=== PATIENT | female | born 1935 | race Caucasian/White ===

== ENCOUNTER 2019-01-18 22:10 | Inpatient (IN) | payer OTHER ==
[~2019-01-18] VITALS: Ht 165.1 cm; Wt 60.9 kg
[2019-01-18] MEDS ORDERED: Prozac20 MG PO (22:42)
[2019-01-18] MEDS ORDERED: Hair, Skin & N1 EACH PO (22:42)
[2019-01-18] MEDS ORDERED: ASCO500 PO (22:42)
[2019-01-18] MEDS ORDERED: LEVSOD75 PO (22:42)
[2019-01-18] MEDS ORDERED: AMLO10 PO (22:42)
[2019-01-18 22:59] LABS: BASOPHILS ABSOLUTE AUTO 0.09 K/mm3 (0.00-0.23); BASOPHILS PERCENT AUTO 1 % (0-2); EOSINOPHILS ABSOLUTE AUTO 0.99 K/mm3 (0.00-0.68); EOSINOPHILS PERCENT AUTO 8 % (0-6); Hematocrit 33.7 % (33.0-51.0); Hemoglobin 10.8 g/dL (11.5-16.0); IMMATURE GRAN ABSOLUTE AUTO 0.05 K/mm3 (0.00-0.10); IMMATURE GRAN PERCENT AUTO 0 % (0-1); LYMPHOCYTES ABSOLUTE AUTO 0.86 K/mm3 (0.84-5.20); LYMPHOCYTES PERCENT AUTO 7 % (21-46); MONOCYTES ABSOLUTE AUTO 1.02 K/mm3 (0.16-1.47); MONOCYTES PERCENT AUTO 8 % (4-13); Mean Corpuscular HGB 29.3 pg (26.0-34.0); Mean Corpuscular Volume 91 fL (80-100); Mean Platelet Volume 9.3 fL (9.1-12.4); NEUTROPHILS ABSOLUTE AUTO 9.14 K/mm3 (1.96-9.15); NEUTROPHILS PERCENT AUTO 75 % (41-73); Platelet Count 435 K/mm3 (150-400); RDW Coefficient Variation 13.6 % (11.7-14.2); RDW Standard Deviation 45.8 fL (35.1-46.3); Red Blood Cell Count 3.69 M/mm3 (3.80-5.20); White Blood Cell Count 12.15 K/mm3 (4.00-11.30)
[2019-01-18 23:15] LABS: Alanine Aminotransfer (ALT/SGP 20 U/L (12-78); Albumin/Globulin Ratio 0.7 (0.8-1.8); Alk Phos 124 U/L (50-136); Anion Gap 8 mmol/L (6-16); Aspartate Aminotrans (AST/SGOT 32 U/L (12-37); Bilirubin, Total 0.3 mg/dL (0.1-1.0); Blood Urea Nitrogen 21 mg/dL (8-24); Bun/Creatinine Ratio 25.9 (12.0-20.0); CO2, Blood 24 mmol/L (21-32); Calcium, Blood 8.8 mg/dL (8.5-10.1); Chloride, Blood 105 mmol/L (98-108); Creatinine, Blood 0.81 mg/dL (0.40-1.00); Globulin, Blood 4.4 g/dL (2.2-4.0); Glomerular Filtration Rate >60 (60-); Glucose, Blood 108 mg/dL (70-99); Potassium, Blood 3.9 mmol/L (3.5-5.5); Sodium, Blood 137 mmol/L (136-145); Total Protein, Blood 7.4 g/dL (6.4-8.2)
--- NOTE | 2019-01-19 07:33 | NUR ---
SUMMARY: NO ACUTE CHANGE SINCE ADMISSION. PT VSS, CONTINUES ON 2L NC, SPO2 WNL. PT HAS BEEN UP SEVERAL TIMES TO COMMODE AND GETS SOB WITH EXERTION. HAD BM X2 TONIGHT. PT IS A/O, USING CALL LIGHT. NO ACUTE SAFETY CONCERNS AT THIS TIME. WILL REPORT TO DAY RN.
--- NOTE | 2019-01-19 07:36 | NUR ---
ADMISSION: REPORT RECIEVED FROM ED RN. PT TO UNIT AT ABOUT 0120. PT ABLE TO WALK FROM [facility] TO BED, VSS, ON 2L NC AT THIS TIME. ADMISSION CHARTING COMPLETED, PT BED ALARM ON FOR SAFETY. WILL CTM
[2019-01-19 10:08] LABS: BASOPHILS ABSOLUTE AUTO 0.08 K/mm3 (0.00-0.23); BASOPHILS PERCENT AUTO 1 % (0-2); EOSINOPHILS ABSOLUTE AUTO 0.89 K/mm3 (0.00-0.68); EOSINOPHILS PERCENT AUTO 7 % (0-6); Hematocrit 31.4 % (33.0-51.0); IMMATURE GRAN ABSOLUTE AUTO 0.06 K/mm3 (0.00-0.10); IMMATURE GRAN PERCENT AUTO 1 % (0-1); LYMPHOCYTES ABSOLUTE AUTO 0.79 K/mm3 (0.84-5.20); LYMPHOCYTES PERCENT AUTO 6 % (21-46); MONOCYTES PERCENT AUTO 9 % (4-13); Mean Corpuscular HGB 28.8 pg (26.0-34.0); Mean Corpuscular HGB Conc 31.8 g/dL (31.5-36.5); Mean Corpuscular Volume 91 fL (80-100); Mean Platelet Volume 9.6 fL (9.1-12.4); NEUTROPHILS ABSOLUTE AUTO 9.99 K/mm3 (1.96-9.15); NEUTROPHILS PERCENT AUTO 77 % (41-73); Platelet Count 392 K/mm3 (150-400); RDW Coefficient Variation 13.9 % (11.7-14.2); RDW Standard Deviation 45.7 fL (35.1-46.3); Red Blood Cell Count 3.47 M/mm3 (3.80-5.20); White Blood Cell Count 12.91 K/mm3 (4.00-11.30)
[2019-01-19 10:25] LABS: Anion Gap 6 mmol/L (6-16); Blood Urea Nitrogen 18 mg/dL (8-24); Bun/Creatinine Ratio 24.2 (12.0-20.0); CO2, Blood 24 mmol/L (21-32); Calcium, Blood 8.1 mg/dL (8.5-10.1); Chloride, Blood 104 mmol/L (98-108); Creatinine, Blood 0.74 mg/dL (0.40-1.00); Glomerular Filtration Rate >60 (60-); Glucose, Blood 132 mg/dL (70-99); Potassium, Blood 4.1 mmol/L (3.5-5.5); Sodium, Blood 134 mmol/L (136-145)
--- NOTE | 2019-01-19 11:51 | NUR ---
CRACKLES PT HAS CRACKLES T/O. INCREASED WOB. CALLED DR SAINZ, ORDERS OBTAINED.
--- NOTE | 2019-01-19 13:38 | NUR ---
PT REPORTS FEELING IMPROVED WOB APPEARS IMPROVED AFTER REC'D LASIX PER ORDERS.
[2019-01-19] MEDS ORDERED: MIRT15 PO (16:25)
--- NOTE | 2019-01-19 17:17 | NUR ---
SUMMARY PT DOING BETTER THIS EVENING. STILL BECOMES SOB W/EXERTION BUT WOB HAS IMPROVED AFTER IV LASIX. CRACKLES SUBSIDED, REMAIN IN LLL. PT USING BSC INDEPENDENTLY. USES CALL LIGHT APPROPRIATELY.
--- NOTE | 2019-01-20 06:40 | NUR ---
PT HAD NO ACUTE CHANGES T/O NIGHT. BP ELEVATED THIS AM, HYDRALAZINE GIVEN PER ORDERS. PT REMAINS SOB W/EXERTION, LUNGS DIM W/CRACKLES IN BASES. 3-4LO2 NC IN PLACE WHILE SLEEPING. PT REP LESS SOB AFTER RT TX. PT UP TO BSC INDEP, IS USING CALL LIGHT FOR ASSISTANCE, WILL CONT TO MONITOR UNTIL REP GIVEN TO ONCOMING RN.
--- NOTE | 2019-01-20 18:32 | NUR ---
NO ACUTE CHANGES. PT ON 3L NC. SOB WITH EXERTION. AMBULATED TO RESTROOM, OOB FOR DINNER. REPORTS FEELING BETTER COMPARED TO THIS AM. VSS, PLEASANT AND COOPERATIVE
--- NOTE | 2019-01-21 04:44 | NUR ---
PT HAD NO ACUTE CHANGES T/O NIGHT; VSS. 3LO2 NC IN PLACE TO REGIS PSATS >90%. PT REMAINS QUITE SOB W/EXERTION, DECLINED NEED FOR RT TX. PT UP INDEP TO BSC, REMAINS WEAK, BUT REP FEELING SOMEWHAT IMPROVED. TYLENOL GIVEN FOR DISCOMFORT. PT USING CALL LIGHT FOR ASSISTANCE, WILL CONT TO MONITOR UNTIL REP GIVEN TO ONCOMING RN.
[2019-01-21 05:12] LABS: BASOPHILS ABSOLUTE AUTO 0.07 K/mm3 (0.00-0.23); BASOPHILS PERCENT AUTO 1 % (0-2); EOSINOPHILS ABSOLUTE AUTO 1.17 K/mm3 (0.00-0.68); EOSINOPHILS PERCENT AUTO 12 % (0-6); Hematocrit 32.4 % (33.0-51.0); Hemoglobin 10.4 g/dL (11.5-16.0); IMMATURE GRAN ABSOLUTE AUTO 0.06 K/mm3 (0.00-0.10); IMMATURE GRAN PERCENT AUTO 1 % (0-1); LYMPHOCYTES ABSOLUTE AUTO 0.78 K/mm3 (0.84-5.20); LYMPHOCYTES PERCENT AUTO 8 % (21-46); MONOCYTES ABSOLUTE AUTO 1.07 K/mm3 (0.16-1.47); MONOCYTES PERCENT AUTO 11 % (4-13); Mean Corpuscular HGB 29.4 pg (26.0-34.0); Mean Corpuscular HGB Conc 32.1 g/dL (31.5-36.5); Mean Corpuscular Volume 92 fL (80-100); Mean Platelet Volume 9.6 fL (9.1-12.4); NEUTROPHILS ABSOLUTE AUTO 6.63 K/mm3 (1.96-9.15); NEUTROPHILS PERCENT AUTO 68 % (41-73); Platelet Count 441 K/mm3 (150-400); RDW Coefficient Variation 13.9 % (11.7-14.2); RDW Standard Deviation 47.2 fL (35.1-46.3); Red Blood Cell Count 3.54 M/mm3 (3.80-5.20); White Blood Cell Count 9.78 K/mm3 (4.00-11.30)
--- NOTE | 2019-01-21 18:46 | NUR ---
SUMMARY NO ACUTE CHANGES NOTED THROUGH THE SHIFT. O2 >90% ON 3 L NC, PRN BREATHING TX X1. TYLENOL FOR BODY ACHES X1. PT INDEPENDENT TO BSC. CALLS FOR ASSISTANCE PRN. CHEST XRAY COMPLETED. CALL LIGHT IN REACH
--- NOTE | 2019-01-22 06:04 | NUR ---
PT UP TO COMMODE X2 AND HAD INCREASED SOB. RT CALLED, PT GIVEN BREATHING TX AND 02 INCREASED TO 6L ON HIGH FLOW, SEE RT KAY Meyer. NOTES. PT ALSO STATED SOMEWHAT ANXIOUS, NOTHING FOR ANXIETY ON EMAR AT THIS TIME, WILL CTM PT STATUS AND REASSESS AFTER BREATHING IS CONTROLED.
--- NOTE | 2019-01-22 06:10 | NUR ---
SUMMARY: SEE PREVIOUS NOTE BY THIS RN. NO OTHER ACUTE RESPIRATORY EVENTS TONIGHT. PT CONTINUES ON 6L HIGH FLOW, SPO2 >90%. PT ABLE TO REST EASY AND NOT BE ANXIOUS AFTER 02 INCREASED. VSS, PT IS A/O, INDEPENDENT IN ROOM. RT RECOMMENDS HOME 02 EVAL BEFORE DISCHARGE. NO SAFETY CONCERNS AT THIS TIME. WILL REPORT TO DAY RN.
--- NOTE | 2019-01-22 07:48 | NUR ---
ASSESSMENT: PT SLEEPING. VSS. NO S/S DISTRESS. PT ON 6L O2. CALL LIGHT IN REACH. WILL ALLOW REST AND FULLY ASSESS WHEN PT IS AWAKE.
--- NOTE | 2019-01-22 17:13 | NUR ---
PT STATES SHE IS "FEELING BETTER" THIS SHIFT. PT CURRENTLY ON 4L O2 WITH HUMIDIFIER. SOB WITH EXERTION. NO COUGH. PT STARTED ON SCHEDULED INHALERS AND STEROIDS THIS AM. ABBY DIET WELL. VOIDING ON BSC INDEP. PT DOES NOT TOLERATE AMBULATION. PT HAD SMALL FORMED BM'S THIS SHIFT. STARTED ON PROBIOTICS. IV S.L. AM LABS TO BE REPEATED. AFEBRILE. AT BEDSIDE T/O SHIFT, ATTENTIVE. USES CALL LIGHT APPROPRIATELY.
[2019-01-23 04:29] LABS: Hematocrit 32.4 % (33.0-51.0); Hemoglobin 10.2 g/dL (11.5-16.0); Mean Corpuscular HGB Conc 31.5 g/dL (31.5-36.5); Mean Corpuscular Volume 92 fL (80-100); Mean Platelet Volume 9.6 fL (9.1-12.4); Platelet Count 433 K/mm3 (150-400); RDW Coefficient Variation 14.1 % (11.7-14.2); RDW Standard Deviation 47.6 fL (35.1-46.3); Red Blood Cell Count 3.52 M/mm3 (3.80-5.20); White Blood Cell Count 7.22 K/mm3 (4.00-11.30)
[2019-01-23 04:47] LABS: Anion Gap 8 mmol/L (6-16); Blood Urea Nitrogen 25 mg/dL (8-24); Bun/Creatinine Ratio 34.7 (12.0-20.0); CO2, Blood 25 mmol/L (21-32); Calcium, Blood 9.2 mg/dL (8.5-10.1); Chloride, Blood 108 mmol/L (98-108); Creatinine, Blood 0.72 mg/dL (0.40-1.00); Glomerular Filtration Rate >60 (60-); Glucose, Blood 117 mg/dL (70-99); Potassium, Blood 4.4 mmol/L (3.5-5.5); Sodium, Blood 141 mmol/L (136-145)
--- NOTE | 2019-01-23 07:14 | NUR ---
SUMMARY: NO CHANGE TONIGHT. PT SLEPT WELL, VSS, CONTINUES ON 4L NC. PT A/O, INDEPENDENT IN ROOM.
--- NOTE | 2019-01-23 18:33 | NUR ---
SHIFT SUMMARY PT ON 4L OF OXYGEN VIA NASAL CANULA, SATS ABOVE 92% DURING SHIFT. SOME SOB WITH EXERTION TO BSC. PT COMPLAINED OF NO PAIN. URINITED AND HAD BM DURING SHIFT. ALERT AND ORIENTED. PT RESTING IN BED DURING SHIFT. FAMILY IN AND OUT OF ROOM.
--- NOTE | 2019-01-24 05:00 | NUR ---
SUMMARY: NO CHANGE TONIGHT. PT A/O, VSS. O2 AT 4L, PT REPORTS STRONGER AND UP INDEPENDENTLY IN ROOM. PLAN IS HOME 02 EVAL TODAY.
[2019-01-24] MEDS ORDERED: DULERA 200 MCG/13 GM INH (11:39)
[2019-01-24] MEDS ORDERED: DELTASONE20 MG PO (11:41)
[2019-01-24] MEDS ORDERED: Florastor250 MG PO (11:41)
[2019-01-24] MEDS ORDERED: ALBU90OI6 INH (11:42)
[2019-01-24] MEDS ORDERED: DOXY100 PO (11:43)
--- NOTE | 2019-01-24 16:56 | NUR ---
DISCHARGE PT EDUCATED ON DISCHARGE INSTRUCTIONS AND HOME OXYGEN. IV DC'D WITH CATHETER TIP INTACT. WHEELCHAIR ESCORT TO CAR WITH NO ACUTE CHANGES.
== END 2019-01-24 16:20 | disposition home or self-care (01) | DRG 871 ==
LOC: ER 22:10 → SURS 01-19 01:03
PROVIDERS: Emergency Medicine; Internal Medicine; ADMIT Family Medicine
DX: A40.3 Sepsis due to Streptococcus pneumoniae (principal); J96.01 Acute respiratory failure with hypoxia; J13 Pneumonia due to Streptococcus pneumoniae; J44.0 Chronic obstructive pulmonary disease with (acute) lower respiratory infection; C34.11 Malignant neoplasm of upper lobe, right bronchus or lung; E03.9 Hypothyroidism, unspecified; F32.9 Major depressive disorder, single episode, unspecified; I10 Essential (primary) hypertension; I35.0 Nonrheumatic aortic (valve) stenosis; Z99.81 Dependence on supplemental oxygen; Z87.891 Personal history of nicotine dependence; D64.9 Anemia, unspecified; D47.3 Essential (hemorrhagic) thrombocythemia
CPT/HCPCS: 36415; 71045; 71046; 71260; 80048; 80053; 83880; 84145; 84484; 85025; 85027; 93005; 93010; 94640; 94760; 94761; 96365; 99285-25; J0360; J0456; J0696; J1650; J1940; J7050; J7512; Q9967

== ENCOUNTER 2019-02-24 08:25 | Inpatient (IN) | payer OTHER ==
[~2019-02-24] VITALS: Ht 167.6 cm; Wt 64.5 kg
[~2019-02-24 08:25] MED LIST: AMLO10 PO; DELTASONE20 MG PO; DOXY100 PO; DULERA 200 MCG/13 GM INH; Florastor250 MG PO; LEVSOD75 PO; Prozac40 MG PO
[2019-02-24 09:00] LABS: Hematocrit 30.9 % (33.0-51.0); Mean Corpuscular HGB 30.8 pg (26.0-34.0); Mean Corpuscular HGB Conc 32.4 g/dL (31.5-36.5); Mean Corpuscular Volume 95 fL (80-100); Mean Platelet Volume 9.7 fL (9.1-12.4); NRBC ABSOLUTE 0.24 K/mm3 (0.00-0.02); NRBC Auto 0.7 /100 WBC (0.0-0.2); Platelet Count 492 K/mm3 (150-400); RDW Coefficient Variation 19.9 % (11.7-14.2); RDW Standard Deviation 63.7 fL (35.1-46.3); Red Blood Cell Count 3.25 M/mm3 (3.80-5.20); White Blood Cell Count 33.81 K/mm3 (4.00-11.30)
[2019-02-24 09:23] LABS: Alanine Aminotransfer (ALT/SGP 30 U/L (12-78); Albumin, Blood 3.5 g/dL (3.4-5.0); Albumin/Globulin Ratio 1.1 (0.8-1.8); Alk Phos 89 U/L (50-136); Anion Gap 5 mmol/L (6-16); Aspartate Aminotrans (AST/SGOT 37 U/L (12-37); Bilirubin, Total 0.3 mg/dL (0.1-1.0); Blood Urea Nitrogen 36 mg/dL (8-24); Bun/Creatinine Ratio 48.3 (12.0-20.0); CO2, Blood 29 mmol/L (21-32); Calcium, Blood 8.6 mg/dL (8.5-10.1); Chloride, Blood 102 mmol/L (98-108); Creatinine, Blood 0.75 mg/dL (0.40-1.00); Globulin, Blood 3.3 g/dL (2.2-4.0); Glomerular Filtration Rate >60 (60-); Glucose, Blood 91 mg/dL (70-99); Potassium, Blood 4.4 mmol/L (3.5-5.5); Sodium, Blood 136 mmol/L (136-145); Total Protein, Blood 6.8 g/dL (6.4-8.2); Troponin I 0.377 ng/mL (0.000-0.040)
[2019-02-24 09:27] LABS: BASOPHILS PERCENT MAN 0 % (0-2); EOSINOPHILS PERCENT MAN 0 % (0-6); LYMPHOCYTES % ATYPICAL MANUAL 1 % (0-0); LYMPHOCYTES ABSOLUTE MAN 3.71 K/mm3 (0.84-5.20); LYMPHOCYTES PERCENT MAN 10 % (21-46); METAMYELOCYTE PERCENT MAN 0 % (0-0); MONOCYTES ABSOLUTE MAN 2.02 K/mm3 (0.16-1.47); MONOCYTES PERCENT MAN 6 % (4-13); MYELOCYTE ABSOLUTE MAN 0.67 K/mm3 (0.00-0.00); MYELOCYTE PERCENT MAN 2 % (0-0); NEUTROPHILS ABSOLUTE MAN 27.04 K/mm3 (1.96-9.15); SEG NEUTROPHILS PERCENT MAN 80 % (41-73); TOTAL CELLS COUNTED 250
[2019-02-24 09:40] LABS: International Normalized Ratio 0.97; Prothrombin Time Results 10.3 Sec (9.7-11.5)
[2019-02-24 10:34] LABS: Source, Urine Clean Catch
[2019-02-24 10:47] LABS: Bilirubin, Urine Neg (Neg); Blood, Urine Neg (Neg); Glucose Qualitative, Urine Neg (Neg); Ketones, Urine Neg (Neg); Leukocyte Esterase, Urine 1+ (Neg); Nitrite, Urine Neg (Neg); Protein, Urine 1+ (Neg); Urobilinogen, Urine NORM (Normal)
[2019-02-24 10:59] LABS: Appearance, Urine Clear (Clear); Color, Urine Yellow (P-Yellow)
[2019-02-24 11:00] LABS: Bacteria Few /hpf; Red Blood Cells, Urine 0-2 /hpf (0-2); Squamous Epithelial Cells Mod /hpf (Few)
--- NOTE | 2019-02-24 12:31 | NUR ---
Echocardiogram completed.
[2019-02-24] MEDS ORDERED: CLOP75 PO (12:51)
[2019-02-24] MEDS ORDERED: LO-DOSE ASPIRIN81 MG PO (13:10)
[2019-02-24] MEDS ORDERED: MIRT15 PO (13:10)
[2019-02-24] MEDS ORDERED: Hair, Skin & N1 EACH PO (13:13)
[2019-02-24] MEDS ORDERED: ASCO500 PO (13:13)
[2019-02-24] MEDS ORDERED: Fish Oil 10001000 MG PO (13:14)
[2019-02-24] MEDS ORDERED: Vitamin D2000 UNIT PO (13:14)
[2019-02-24] MEDS ORDERED: ALBU90OI6 INH (13:19)
--- NOTE | 2019-02-24 17:35 | NUR ---
NURSING PCU DAYSHIFT SUMMARY: Assumed care of pt at approx 1450. Arrived from ER via re[facility] torres to unit bed w/SBA. A/O, pleasant, cooperative w/care. Noted general weakness w/intermittent diaphoresis t/o the afternoon. Denies any pain/discomfort. Skin is intact w/no breakdown noted. Tele in place, afib w/HR 100-110, no c/o CP/pressure, BP stable, no noted edema. L/S cta t/o, O2 sat stable on RA, dyspnea w/exertion, no noted cough. Abd SNT, BT+, voiding w/o difficulty per pt. PIV x2, diltiazem gtt infusing at 10cc/hr, LR infusing at 150cc/hr x 1.5L as per d/o. Spouse at bedside, plan of care discussed, pt and spouse deny any questions/needs at this time. Call light in reach, cont to monitor until rpt is given to NOC RN.
[2019-02-24] MEDS ORDERED: ZINC30 M1 PO (19:17)
[2019-02-24] MEDS ORDERED: (None)20 M1 PO (19:38)
--- NOTE | 2019-02-24 21:00 | NUR ---
PCU NOC SHIFT SUMMARY PATIENT ALERT AND ORIENTED X4. REPORTS CHRONIC HIP PAIN WHICH IS WNL FOR HER. PATIENT SBA TO BEDSIDE COMMODE - TOLERATES WELL. HAD A REGULAR/NORMAL BM MOVEMENT THIS SHIFT. PATIENT REMAINS IN AFIB W/ RVR FROM 95/105 RATE - CARDIEZEM RUNNING AT 10 GTT HR - WILL TITRATE DOWN TO 5 ONCE SHE REMAINS UNDER 100 RATE X 1 HOUR. PATIENT REMAINS ON ROOM AIR WITH CLEAR LUNG SOUNDS. SKIN IS PALE/DUSKY. PATIENT REPORT SOB WITH EXCERTION. WILL CONTINUE TO MONITOR. CALL LIGHT W/I REACH/PATIENT USES APPROPRIATLY.
[2019-02-25 04:09] LABS: Hematocrit 27.2 % (33.0-51.0); Hemoglobin 8.5 g/dL (11.5-16.0); Mean Corpuscular HGB 30.1 pg (26.0-34.0); Mean Corpuscular HGB Conc 31.3 g/dL (31.5-36.5); Mean Corpuscular Volume 97 fL (80-100); Mean Platelet Volume 9.5 fL (9.1-12.4); NRBC ABSOLUTE 0.08 K/mm3 (0.00-0.02); NRBC Auto 0.3 /100 WBC (0.0-0.2); Platelet Count 347 K/mm3 (150-400); RDW Coefficient Variation 20.1 % (11.7-14.2); RDW Standard Deviation 67.5 fL (35.1-46.3); Red Blood Cell Count 2.82 M/mm3 (3.80-5.20); White Blood Cell Count 24.18 K/mm3 (4.00-11.30)
[2019-02-25 04:29] LABS: BAND PERCENT MAN 1 % (0-8); BASOPHILS PERCENT MAN 0 % (0-2); EOSINOPHILS ABSOLUTE MAN 0.24 K/mm3 (0.00-0.68); EOSINOPHILS PERCENT MAN 1 % (0-6); LYMPHOCYTES ABSOLUTE MAN 2.65 K/mm3 (0.84-5.20); LYMPHOCYTES PERCENT MAN 11 % (21-46); MONOCYTES PERCENT MAN 5 % (4-13); MYELOCYTE ABSOLUTE MAN 0.72 K/mm3 (0.00-0.00); MYELOCYTE PERCENT MAN 3 % (0-0); NEUTROPHILS ABSOLUTE MAN 19.34 K/mm3 (1.96-9.15); SEG NEUTROPHILS PERCENT MAN 79 % (41-73); TOTAL CELLS COUNTED 100
[2019-02-25 04:35] LABS: Anion Gap 8 mmol/L (6-16); Blood Urea Nitrogen 41 mg/dL (8-24); Bun/Creatinine Ratio 56.6 (12.0-20.0); CO2, Blood 25 mmol/L (21-32); Calcium, Blood 7.7 mg/dL (8.5-10.1); Chloride, Blood 104 mmol/L (98-108); Creatinine, Blood 0.73 mg/dL (0.40-1.00); Glomerular Filtration Rate >60 (60-); Glucose, Blood 82 mg/dL (70-99); Potassium, Blood 4.1 mmol/L (3.5-5.5); Sodium, Blood 137 mmol/L (136-145)
[2019-02-25 04:44] LABS: Thyroid Stimulating Hormone 0.345 uIU/mL (0.360-4.800)
--- NOTE | 2019-02-25 06:24 | NUR ---
PCU NOC SHIFT SUMMARY PATIENT ALERT AND ORIENTED T/O SHIFT X4. PATIENT AFIB WITH RVR ADMIT, HEART RATE REMAINS AFIB 90-110'S - MD MENENDEZ IN TO SEE PATIENT X2 THIS SHIFT. PATIENT USES BEDSIDE COMMODE WELL WITH STEADY GAIT. PATIENT DENIES ANY PAIN T/O SHIFT. BILATERAL GROIN BUISING NOTED THAT IS STABLE AND HEALING. AM EKG COMPLETED. L/S CLEAR AND PATIENT REMAINS ON ROOM AIR. WILL CONTINUE TO MONITOR AND GIVE REPORT TO DAYSHIFT RN.
--- NOTE | 2019-02-25 09:20 | NUR ---
Pt states she feels short of breath; She was given her medications this morning. Heart rate is 110 currently; Dr. Crane was informed of her increasing rate this morning. Thept appears calm, and she is lying in bed, HOB elevated about 10 degrees, able to carry on normal conversation with her who is at the bedside.
--- NOTE | 2019-02-25 10:22 | NUR ---
Patient is lying in bed and alert with , Giorgio, bedside. Patient openly shares about her life, her family and her current medical issues. Patient admitted that she is discouraged by her recent medical problems because she feels that she just gets through one thing and then she is hit with another. I listen empathically, facilitated a life review highlighting all that she has overcome, provide grief support (recent loss of oldest son to cancer), quote inspiring scriptures and provide prayer (in line with patient's Christian beliefs). Patient responded well and showed signs of an elevated mood.
--- NOTE | 2019-02-25 12:28 | NUR ---
The pt states that her shortness of breath earlier has since resolved. 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
--- NOTE | 2019-02-25 22:32 | NUR ---
PCU NOC SHIFT - ASSUMED CARE PATIENT ALERT AND ORIENTED X4. RESP E/U ON ROOM AIR. PATIENT DENIES ANY CHEST PAIN OR DISCOMFORT AT THIS TIME; NO SOB OF NOTED, LUNG SOUNDS CLEAR AND PATIENT REMAINS ON ROOM AIR. PATIENT PER ASSOCIATE STORE MANAGER IN AFIB W/ BUNDLE BRANCH BLOCK AND PVC'S WITH HIS RATE IN THE 90'S. PATIENT INDEPENDANT UP TO BEDSIDE COMMODE. IV'S SALINE LOCKED. PATIENT DENIES ANY NEEDS AT THIS TIME. WILL CONTINUE TO MONITOR. CALL LIGHT W/I REACH.
--- NOTE | 2019-02-26 05:14 | NUR ---
PCU NOC SHIFT SUMMARY PATIENT REMAINED ALERT AND ORIENTED T/O SHIFT X4. PATIENT HEART RATE CONTINUED TO BE CONTROLLED WITH HER RATE 70-80'S CURRENTLY PER SHEET METAL DUCT WORKER SUPERVISOR REMAINING IN AFIB. PATIENT PLEASANT AND COOPERATIVE WITH CARE T/O SHIFT. NO ACUTE EVENTS NOTED. WILL CONTINUE TO MONITOR AND GIVE REPORT TO DAYSHIFT RN.
[2019-02-26 13:42] LABS: Hematocrit 24.7 % (33.0-51.0); Hemoglobin 7.9 g/dL (11.5-16.0); Mean Corpuscular HGB 30.5 pg (26.0-34.0); Mean Corpuscular Volume 95 fL (80-100); Mean Platelet Volume 9.4 fL (9.1-12.4); NRBC ABSOLUTE 0.03 K/mm3 (0.00-0.02); NRBC Auto 0.1 /100 WBC (0.0-0.2); Platelet Count 278 K/mm3 (150-400); RDW Coefficient Variation 21.1 % (11.7-14.2); RDW Standard Deviation 70.4 fL (35.1-46.3); Red Blood Cell Count 2.59 M/mm3 (3.80-5.20); White Blood Cell Count 24.86 K/mm3 (4.00-11.30)
[2019-02-26 13:53] LABS: Anion Gap 12 mmol/L (6-16); Blood Urea Nitrogen 32 mg/dL (8-24); CO2, Blood 21 mmol/L (21-32); Calcium, Blood 8.1 mg/dL (8.5-10.1); Chloride, Blood 104 mmol/L (98-108); Glomerular Filtration Rate >60 (60-); Glucose, Blood 177 mg/dL (70-99); Potassium, Blood 4.4 mmol/L (3.5-5.5); Sodium, Blood 137 mmol/L (136-145); Vancomycin, Trough 6.2 ug/mL (5.0-10.0)
[2019-02-26 14:26] LABS: BAND PERCENT MAN 1 % (0-8); BASOPHILS PERCENT MAN 0 % (0-2); EOSINOPHILS PERCENT MAN 0 % (0-6); LYMPHOCYTES ABSOLUTE MAN 0.99 K/mm3 (0.84-5.20); LYMPHOCYTES PERCENT MAN 4 % (21-46); METAMYELOCYTE ABSOLUTE MAN 0.24 K/mm3 (0.00-0.00); METAMYELOCYTE PERCENT MAN 1 % (0-0); MONOCYTES ABSOLUTE MAN 0.49 K/mm3 (0.16-1.47); MONOCYTES PERCENT MAN 2 % (4-13); NEUTROPHILS ABSOLUTE MAN 23.11 K/mm3 (1.96-9.15); SEG NEUTROPHILS PERCENT MAN 92 % (41-73); TOTAL CELLS COUNTED 100
--- NOTE | 2019-02-26 16:21 | NUR ---
Telephone report was given to KYLAH De La Cruz, at this time. Anticipate transfer of pt to room 224.
--- NOTE | 2019-02-26 17:08 | NUR ---
TRANSFER FROM PCU ARRIVED TO ROOM VIA W/C, A&O X3, TRANSFERRED INDEPENDENTLY TO BED, DENIES ANY SOB, COUGH, PAIN OR ANY DISCOMFORT, LUNGS SOUNDS CLEAR T/O, HR IRREG, ACTIVE BT'S X4, ORIENTED TO ROOM LAYOUT AND CALL SYSTEM, CONT. TO MONITOR FOR ANY CHANGES.
[2019-02-27 04:12] LABS: BASOPHILS ABSOLUTE AUTO 0.03 K/mm3 (0.00-0.23); BASOPHILS PERCENT AUTO 0 % (0-2); EOSINOPHILS ABSOLUTE AUTO 0.02 K/mm3 (0.00-0.68); EOSINOPHILS PERCENT AUTO 0 % (0-6); Hematocrit 24.6 % (33.0-51.0); Hemoglobin 7.8 g/dL (11.5-16.0); IMMATURE GRAN ABSOLUTE AUTO 0.91 K/mm3 (0.00-0.10); IMMATURE GRAN PERCENT AUTO 4 % (0-1); LYMPHOCYTES ABSOLUTE AUTO 0.69 K/mm3 (0.84-5.20); LYMPHOCYTES PERCENT AUTO 3 % (21-46); MONOCYTES ABSOLUTE AUTO 0.75 K/mm3 (0.16-1.47); MONOCYTES PERCENT AUTO 3 % (4-13); Mean Corpuscular HGB Conc 31.7 g/dL (31.5-36.5); Mean Platelet Volume 9.5 fL (9.1-12.4); NEUTROPHILS ABSOLUTE AUTO 21.64 K/mm3 (1.96-9.15); NEUTROPHILS PERCENT AUTO 90 % (41-73); NRBC ABSOLUTE 0.02 K/mm3 (0.00-0.02); NRBC Auto 0.1 /100 WBC (0.0-0.2); Platelet Count 272 K/mm3 (150-400); RDW Coefficient Variation 21.2 % (11.7-14.2); RDW Standard Deviation 74.2 fL (35.1-46.3); Red Blood Cell Count 2.52 M/mm3 (3.80-5.20); White Blood Cell Count 24.04 K/mm3 (4.00-11.30)
[2019-02-27 04:18] LABS: Mean Corpuscular Volume 98 fL (80-100)
--- NOTE | 2019-02-27 06:17 | NUR ---
PT HAD NO ACUTE CHANGES T/O NIGHT; VSS, SATS >90% ON RA. HR AFIB 90-LOW 100'S, PT DENIED CP/PRESSURE. PT DENIED PAIN/N/V. PT UP INDEP IN ROOM, IS VOIDING W/O DIFFICULTY. PT ANXIOUS AT TIMES R/T NEW AFIB DX, EDUCATION PROVIDED PRN. PT USING CALL LIGHT FOR ASSISTANCE, WILL CONT TO MONITOR UNTIL REP GIVEN TO ONCOMING RN.
[2019-02-27 08:41] LABS: BASOPHILS ABSOLUTE AUTO 0.03 K/mm3 (0.00-0.23); BASOPHILS PERCENT AUTO 0 % (0-2); EOSINOPHILS ABSOLUTE AUTO 0.01 K/mm3 (0.00-0.68); EOSINOPHILS PERCENT AUTO 0 % (0-6); Hematocrit 24.8 % (33.0-51.0); Hemoglobin 7.9 g/dL (11.5-16.0); IMMATURE GRAN ABSOLUTE AUTO 0.83 K/mm3 (0.00-0.10); IMMATURE GRAN PERCENT AUTO 3 % (0-1); LYMPHOCYTES ABSOLUTE AUTO 1.25 K/mm3 (0.84-5.20); LYMPHOCYTES PERCENT AUTO 5 % (21-46); MONOCYTES ABSOLUTE AUTO 1.57 K/mm3 (0.16-1.47); MONOCYTES PERCENT AUTO 6 % (4-13); Mean Corpuscular HGB 30.2 pg (26.0-34.0); Mean Corpuscular HGB Conc 31.9 g/dL (31.5-36.5); Mean Platelet Volume 9.7 fL (9.1-12.4); NEUTROPHILS ABSOLUTE AUTO 21.87 K/mm3 (1.96-9.15); NEUTROPHILS PERCENT AUTO 86 % (41-73); NRBC ABSOLUTE 0.03 K/mm3 (0.00-0.02); NRBC Auto 0.1 /100 WBC (0.0-0.2); Platelet Count 266 K/mm3 (150-400); RDW Coefficient Variation 21.2 % (11.7-14.2); RDW Standard Deviation 70.4 fL (35.1-46.3); RETICULOCYTE ABSOLUTE 0.1472 M/mm3 (0.0200-0.1100); RETICULOCYTE COUNT PERCENT 5.62 % (0.50-2.50); Red Blood Cell Count 2.62 M/mm3 (3.80-5.20); White Blood Cell Count 25.56 K/mm3 (4.00-11.30)
[2019-02-27 08:42] LABS: Mean Corpuscular Volume 95 fL (80-100)
[2019-02-27 09:06] LABS: Percent Saturation 16.1 % (15.0-50.0)
[2019-02-27 09:11] LABS: Albumin, Blood 3.3 g/dL (3.4-5.0); Anion Gap 9 mmol/L (6-16); Blood Urea Nitrogen 34 mg/dL (8-24); Bun/Creatinine Ratio 45.5 (12.0-20.0); CO2, Blood 25 mmol/L (21-32); Calcium, Blood 8.4 mg/dL (8.5-10.1); Chloride, Blood 104 mmol/L (98-108); Creatinine, Blood 0.75 mg/dL (0.40-1.00); Glomerular Filtration Rate >60 (60-); Glucose, Blood 115 mg/dL (70-99); Phosphorus, Blood 3.4 mg/dL (2.5-4.9); Potassium, Blood 4.5 mmol/L (3.5-5.5); Sodium, Blood 138 mmol/L (136-145)
[2019-02-27] MEDS ORDERED: LANOXIN125 MCG PO (14:29)
[2019-02-27] MEDS ORDERED: DILT120 PO (14:29)
[2019-02-27] MEDS ORDERED: VISBIOME 112.51 EACH PO (14:35)
[2019-02-27] MEDS ORDERED: ELIQUIS5 MG PO (14:36)
[2019-02-27] MEDS ORDERED: LEVO750 PO (14:36)
--- NOTE | 2019-02-27 16:43 | NUR ---
DC'D HOME, DC INSTRUCTIONS GIVEN, VERBALIZED UNDERSTANDING, PT ACCOMPANIED BY SPOUSE.
== END 2019-02-27 16:10 | disposition home or self-care (01) | DRG 872 ==
LOC: ER 08:25 → PCU 11:26 → SURS 02-26 16:48
PROVIDERS: Emergency Medicine; Internal Medicine; ADMIT Hospitalist
PROC: 30233N1 Transfusion of Nonautologous Red Blood Cells into Peripheral Vein, Percutaneous Approach (ICD-10-PCS; principal; 2019-02-25)
DX: A41.81 Sepsis due to Enterococcus (principal); N39.0 Urinary tract infection, site not specified; J70.0 Acute pulmonary manifestations due to radiation; I50.32 Chronic diastolic (congestive) heart failure; R65.20 Severe sepsis without septic shock; I48.91 Unspecified atrial fibrillation; Z85.118 Personal history of other malignant neoplasm of bronchus and lung; Z95.4 Presence of other heart-valve replacement; D64.9 Anemia, unspecified; J44.9 Chronic obstructive pulmonary disease, unspecified; Z87.891 Personal history of nicotine dependence; Z66 Do not resuscitate; I11.0 Hypertensive heart disease with heart failure; E03.9 Hypothyroidism, unspecified
CPT/HCPCS: 36415; 36430; 71046; 80048; 80053; 80069; 80202; 81001; 82607; 82728; 82746; 83540; 83550; 83605; 83735; 84145; 84439; 84443; 84484; 85025; 85045; 85610; 85730; 86850; 86900; 86901; 86923; 87040; 87077; 87086; 87186; 93005; 93010; 93308; 93321; 94640; 94760; 96365; 96366; 96368; 96375; 99285-25; J0692; J1160; J1650; J3370; J3480; J7030; J7050; J7120; J7512; P9016

== ENCOUNTER 2019-04-23 19:15 | Observation (INO) | payer OTHER ==
[~2019-04-23] VITALS: Ht 167.6 cm; Wt 68.6 kg
[~2019-04-23 19:15] MED LIST changes: +(None)20 M1 PO; +ALBU90OI6 INH; +ASCO500 PO; +CLOP75 PO; +DILT120 PO; +ELIQUIS5 MG PO; +Fish Oil 10001000 MG PO; +Hair, Skin & N1 EACH PO; +LANOXIN125 MCG PO; +LEVO750 PO; +LO-DOSE ASPIRIN81 MG PO; +MIRT15 PO; +VISBIOME 112.51 EACH PO; +Vitamin D2000 UNIT PO; +ZINC30 M1 PO
[2019-04-23] MEDS ORDERED: LEVSOD75 PO (19:55)
[2019-04-23] MEDS ORDERED: ELIQUIS2.5 MG PO (19:58)
[2019-04-23] MEDS ORDERED: LANOXIN125 MCG PO (19:58)
[2019-04-23] MEDS ORDERED: Prozac20 MG PO (19:58)
[2019-04-23] MEDS ORDERED: DILT120 PO (19:59)
[2019-04-23] MEDS ORDERED: Mirtazapine7.5 MG PO (20:02)
[2019-04-23 20:04] LABS: BASOPHILS ABSOLUTE AUTO 0.09 K/mm3 (0.00-0.23); BASOPHILS PERCENT AUTO 1 % (0-2); EOSINOPHILS ABSOLUTE AUTO 0.56 K/mm3 (0.00-0.68); EOSINOPHILS PERCENT AUTO 5 % (0-6); Hematocrit 33.2 % (33.0-51.0); Hemoglobin 10.1 g/dL (11.5-16.0); IMMATURE GRAN ABSOLUTE AUTO 0.06 K/mm3 (0.00-0.10); IMMATURE GRAN PERCENT AUTO 1 % (0-1); LYMPHOCYTES ABSOLUTE AUTO 1.34 K/mm3 (0.84-5.20); LYMPHOCYTES PERCENT AUTO 13 % (21-46); MONOCYTES ABSOLUTE AUTO 1.07 K/mm3 (0.16-1.47); MONOCYTES PERCENT AUTO 10 % (4-13); Mean Corpuscular HGB 30.8 pg (26.0-34.0); Mean Corpuscular HGB Conc 30.4 g/dL (31.5-36.5); Mean Corpuscular Volume 101 fL (80-100); Mean Platelet Volume 9.4 fL (9.1-12.4); NEUTROPHILS PERCENT AUTO 71 % (41-73); NRBC ABSOLUTE 0.02 K/mm3 (0.00-0.02); NRBC Auto 0.2 /100 WBC (0.0-0.2); Platelet Count 288 K/mm3 (150-400); RDW Coefficient Variation 17.6 % (11.7-14.2); RDW Standard Deviation 66.7 fL (35.1-46.3); Red Blood Cell Count 3.28 M/mm3 (3.80-5.20); White Blood Cell Count 10.72 K/mm3 (4.00-11.30)
[2019-04-23 20:28] LABS: Alanine Aminotransfer (ALT/SGP 32 U/L (12-78); Albumin, Blood 3.2 g/dL (3.4-5.0); Albumin/Globulin Ratio 0.8 (0.8-1.8); Alk Phos 86 U/L (50-136); Anion Gap 9 mmol/L (6-16); Aspartate Aminotrans (AST/SGOT 39 U/L (12-37); Bilirubin, Total 0.3 mg/dL (0.1-1.0); Blood Urea Nitrogen 11 mg/dL (8-24); CO2, Blood 24 mmol/L (21-32); Calcium, Blood 9.2 mg/dL (8.5-10.1); Chloride, Blood 105 mmol/L (98-108); Creatinine, Blood 0.92 mg/dL (0.40-1.00); Globulin, Blood 4.1 g/dL (2.2-4.0); Glomerular Filtration Rate >60 (60-); Glucose, Blood 131 mg/dL (70-99); Potassium, Blood 3.8 mmol/L (3.5-5.5); Sodium, Blood 138 mmol/L (136-145); Total Protein, Blood 7.3 g/dL (6.4-8.2)
--- NOTE | 2019-04-24 02:36 | NUR ---
PATIENT IS A NEW ADMIT FROM THE ED. SELF TRANSFER FROM [facility] TO BED. AXO X3 AND ON ROOM AIR STATING 90%. PATIENT ORIENTED TO ROOM AND CALL LIGHT SYSTEM. TELEMETRY PLACED AND TECH REPORTS AFIB AT 76. DENIES PAIN AND N/V. PATIENT REPORTS SHE WANTS TO WATCH TV BEFORE SLEEPING. ASSESSMENT COMPLETE. CALL LIGHT IN REACH. WILL CONTINUE TO MONITOR.
[2019-04-24 03:13] LABS: Source, Urine Clean Catch
[2019-04-24 03:15] LABS: Appearance, Urine Cloudy (Clear); Bilirubin, Urine Neg (Neg); Blood, Urine 3+ (Neg); Color, Urine Yellow (P-Yellow); Glucose Qualitative, Urine Neg (Neg); Ketones, Urine Neg (Neg); Leukocyte Esterase, Urine 3+ (Neg); Nitrite, Urine Neg (Neg); Protein, Urine 2+ (Neg); Specific Gravity, Urine 1.015 (1.003-1.022); Urobilinogen, Urine NORM (Normal)
[2019-04-24 03:21] LABS: Bacteria Many /hpf; Red Blood Cells, Urine 0-2 /hpf (0-2); Squamous Epithelial Cells Few /hpf (Few); White Blood Cells, Urine TNTC /hpf (0-5)
--- NOTE | 2019-04-24 03:44 | NUR ---
RESPIRATORY PANEL AND UA COLLECTED AND SENT TO LAB.
[2019-04-24 04:58] LABS: Hematocrit 29.5 % (33.0-51.0); Hemoglobin 9.1 g/dL (11.5-16.0); Mean Corpuscular HGB 29.9 pg (26.0-34.0); Mean Corpuscular HGB Conc 30.8 g/dL (31.5-36.5); Mean Platelet Volume 9.6 fL (9.1-12.4); Platelet Count 262 K/mm3 (150-400); RDW Coefficient Variation 17.6 % (11.7-14.2); RDW Standard Deviation 62.5 fL (35.1-46.3); Red Blood Cell Count 3.04 M/mm3 (3.80-5.20); White Blood Cell Count 7.76 K/mm3 (4.00-11.30)
[2019-04-24 05:00] LABS: Mean Corpuscular Volume 97 fL (80-100)
[2019-04-24 05:09] LABS: Adenovirus Not Detected (NOT DETECT); Bordetella pertussis Not Detected (NOT DETECT); Chlamydophila pneumoniae Not Detected (NOT DETECT); Coronavirus 229E Not Detected (NOT DETECT); Coronavirus HKU1 Not Detected (NOT DETECT); Coronavirus NL63 Not Detected (NOT DETECT); Coronavirus OC43 Not Detected (NOT DETECT); Human Metapneumovirus Not Detected (NOT DETECT); Human Rhinovirus/Enterovirus Not Detected (NOT DETECT); Influenza A Not Detected (NOT DETECT); Influenza A/2009-H1 Not Detected (NOT DETECT); Influenza A/H1 Not Detected (NOT DETECT); Influenza A/H3 Not Detected (NOT DETECT); Influenza B Not Detected (NOT DETECT); Mycoplasma pneumoniae Not Detected (NOT DETECT); Parainfluenza Virus 1 Not Detected (NOT DETECT); Parainfluenza Virus 2 Not Detected (NOT DETECT); Parainfluenza Virus 3 Not Detected (NOT DETECT); Parainfluenza Virus 4 Not Detected (NOT DETECT); Respiratory Syncytial Virus Not Detected (NOT DETECT)
[2019-04-24 05:32] LABS: Alanine Aminotransfer (ALT/SGP 32 U/L (12-78); Albumin/Globulin Ratio 0.9 (0.8-1.8); Alk Phos 74 U/L (50-136); Anion Gap 10 mmol/L (6-16); Aspartate Aminotrans (AST/SGOT 30 U/L (12-37); Bilirubin, Total 0.3 mg/dL (0.1-1.0); Blood Urea Nitrogen 11 mg/dL (8-24); Bun/Creatinine Ratio 11.7 (12.0-20.0); CO2, Blood 25 mmol/L (21-32); Calcium, Blood 8.7 mg/dL (8.5-10.1); Chloride, Blood 105 mmol/L (98-108); Creatinine, Blood 0.94 mg/dL (0.40-1.00); Globulin, Blood 3.5 g/dL (2.2-4.0); Glomerular Filtration Rate >60 (60-); Glucose, Blood 117 mg/dL (70-99); Potassium, Blood 3.9 mmol/L (3.5-5.5); Sodium, Blood 140 mmol/L (136-145); Total Protein, Blood 6.5 g/dL (6.4-8.2)
--- NOTE | 2019-04-24 06:36 | NUR ---
SHIFT SUMMARY PATIENT AXOX 3 AND INDEPENDENT IN THE ROOM. UA AND RESPIRATORY PANEL SENT TO LAB. IV ROCEPH INFUSING. PIVS REMAIN INTACT. PATIENT ON RA STATING 93%. VSS/AFEBRILE. BLOCKING MACHINE TENDER REPORTS A-FIB 76. RT IN FOR BREATHING TX. SOB W/EXERTION. TAKES MEDICATION WHOLE WITH WATER. DENIES PAIN AND N/V. COOPERATIVE WITH CARE. CALL LIGHT IN REACH. BED IN LOWEST POSITION. WILL CONTINUE TO MONITOR UNTIL DAY SHIFT NURSE ASSUMES CARE.
--- NOTE | 2019-04-24 07:42 | NUR ---
PT REQUIRING O2. PT SATING AT 85% ON RA AT REST. PT PUT ON 2L O2. PT NOW SATING AT 94%. WILL CONTINUE TO MONITOR. DR. NICCI CARDONA.
[2019-04-24 08:45] LABS: Digoxin (Lanoxin) 0.71 ug/mL (0.80-2.00)
[2019-04-24] MEDS ORDERED: PANT20 PO (10:45)
[2019-04-24] MEDS ORDERED: AIRDUO RESPICL1 EAC1 INH (10:46)
[2019-04-24] MEDS ORDERED: Prednisone10 MG PO (10:48)
[2019-04-24] MEDS ORDERED: ALBU3IS INH (10:49)
--- NOTE | 2019-04-24 11:33 | NUR ---
Echocardiogram completed.
--- NOTE | 2019-04-24 12:42 | NUR ---
PT DISCHARGED PT DISCHARGED AT 1235. PT IN STABLE CONDITION WITH VSS. PT REQUIRING 3L O2. [facility] PROVIDED PORTABLE DC & EDUCATION ON HOW TO WORK IT. PT & EDUCATED ON DC INSTRUCTIONS, FOLLOW UP APPOINTMENTS, & NEW MEDS. NO CHANGES IN ASSESSMENT PRIOR TO DC. PT & DENIED NEED FOR FURTHER INSTRUCTION. PT WHEELED OUT BY AIDE & DRIVEN HOME BY .
--- NOTE | 2019-04-25 10:56 | NUR ---
[facility] AND 'S OFFICES BOTH STATED THAT THEY WILL CALL PATIENT TO SET UP APPOINTMENTS WITHIN ONE WEEK OF DISCHARGE.
== END 2019-04-24 12:37 | disposition home or self-care (01) ==
LOC: ER 19:15 → MEDS 19:16 → ER 04-24 00:23 → MEDS 04-24 00:23 → ER 04-24 00:24 → MEDS 04-24 00:24 → ENPENDDIS 04-24 10:10 → MEDS 04-24 12:37
PROVIDERS: Physician Assistant; ADMIT Internal Medicine
DX: J96.01 Acute respiratory failure with hypoxia (principal); J70.0 Acute pulmonary manifestations due to radiation; J44.9 Chronic obstructive pulmonary disease, unspecified; I10 Essential (primary) hypertension; I48.91 Unspecified atrial fibrillation; I44.7 Left bundle-branch block, unspecified; E03.9 Hypothyroidism, unspecified; Z85.118 Personal history of other malignant neoplasm of bronchus and lung; Z79.899 Other long term (current) drug therapy; Z79.02 Long term (current) use of antithrombotics/antiplatelets; Z91.030 Bee allergy status; Z88.8 Allergy status to other drugs, medicaments and biological substances
CPT/HCPCS: 0099U; 36415; 71046; 71260; 80053; 80162; 81001; 83605; 83880; 84484; 85025; 85027; 85379; 87077; 87086; 87186; 93005; 93010; 93308; 93321; 94640; 94760; 94761; 96372; 96374; 99285-25; G0378; J0696; J1650; J7512; Q9967

== ENCOUNTER → 2019-04-25 | Outpatient (CLI) | payer OTHER ==
[~2019-04-25] MED LIST changes: +AIRDUO RESPICL1 EAC1 INH; +ALBU3IS INH; +Aspirin EC81 MG PO; +CODEINE-GUAIFE120 ML PO; +CYCL10 PO; +DULERA 100 MCG/13 GM INH; +ELIQUIS2.5 MG PO; +FURO40 PO; +HYDR1TAB94 PO; +MELA3 PO; +Mirtazapine7.5 MG PO; +PANT20 PO; +Prednisone10 MG PO; +Prozac20 MG PO; +SPIRIVA RESPIMAT4 GM INH; +THERA-D2000 UNIT PO; +THERA1 EACH PO; +ZINC220 PO; +[UNRECOGNIZED DRUG - OTHER] PO
[2019-04-25 18:41] LABS: Bilirubin, Urine Neg (Neg); Blood, Urine Neg (Neg); Glucose Qualitative, Urine Neg (Neg); Ketones, Urine Neg (Neg); Leukocyte Esterase, Urine 2+ (Neg); Nitrite, Urine Neg (Neg); Protein, Urine 1+ (Neg); Urobilinogen, Urine NORM (Normal)
[2019-04-25 18:51] LABS: Appearance, Urine Clear (Clear); Color, Urine Yellow (P-Yellow)
[2019-04-25 18:55] LABS: Bacteria Mod /hpf; Red Blood Cells, Urine 0-2 /hpf (0-2); Squamous Epithelial Cells Few /hpf (Few); White Blood Cells, Urine 25-50 /hpf (0-5)
== END | disposition home or self-care (01) ==
LOC: LAB SHORT 18:23 → LAB 18:23
PROVIDERS: Nurse Practitioner Primary Care
DX: N39.0 Urinary tract infection, site not specified (principal)
CPT/HCPCS: 81001; 87086

== ENCOUNTER 2019-04-28 05:09 | Inpatient (IN) | payer OTHER ==
[~2019-04-28] VITALS: Ht 167.6 cm; Wt 68.7 kg
[~2019-04-28 05:09] MED LIST changes: -Aspirin EC81 MG PO; -CODEINE-GUAIFE120 ML PO; -CYCL10 PO; -DULERA 100 MCG/13 GM INH; -FURO40 PO; -HYDR1TAB94 PO; -MELA3 PO; -SPIRIVA RESPIMAT4 GM INH; -THERA-D2000 UNIT PO; -THERA1 EACH PO; -ZINC220 PO; -[UNRECOGNIZED DRUG - OTHER] PO
[2019-04-28 05:34] LABS: BASOPHILS ABSOLUTE AUTO 0.09 K/mm3 (0.00-0.23); BASOPHILS PERCENT AUTO 0 % (0-2); EOSINOPHILS ABSOLUTE AUTO 0.22 K/mm3 (0.00-0.68); EOSINOPHILS PERCENT AUTO 1 % (0-6); Hematocrit 28.5 % (33.0-51.0); Hemoglobin 8.7 g/dL (11.5-16.0); IMMATURE GRAN ABSOLUTE AUTO 0.79 K/mm3 (0.00-0.10); IMMATURE GRAN PERCENT AUTO 4 % (0-1); LYMPHOCYTES ABSOLUTE AUTO 2.45 K/mm3 (0.84-5.20); LYMPHOCYTES PERCENT AUTO 11 % (21-46); MONOCYTES ABSOLUTE AUTO 1.54 K/mm3 (0.16-1.47); MONOCYTES PERCENT AUTO 7 % (4-13); Mean Corpuscular HGB 29.5 pg (26.0-34.0); Mean Corpuscular HGB Conc 30.5 g/dL (31.5-36.5); Mean Corpuscular Volume 97 fL (80-100); Mean Platelet Volume 9.6 fL (9.1-12.4); NEUTROPHILS ABSOLUTE AUTO 17.18 K/mm3 (1.96-9.15); NEUTROPHILS PERCENT AUTO 77 % (41-73); NRBC ABSOLUTE 0.04 K/mm3 (0.00-0.02); NRBC Auto 0.2 /100 WBC (0.0-0.2); Platelet Count 336 K/mm3 (150-400); RDW Coefficient Variation 17.6 % (11.7-14.2); Red Blood Cell Count 2.95 M/mm3 (3.80-5.20); White Blood Cell Count 22.27 K/mm3 (4.00-11.30)
[2019-04-28 05:55] LABS: Alanine Aminotransfer (ALT/SGP 50 U/L (12-78); Albumin, Blood 3.1 g/dL (3.4-5.0); Albumin/Globulin Ratio 0.9 (0.8-1.8); Alk Phos 72 U/L (50-136); Anion Gap 8 mmol/L (6-16); Aspartate Aminotrans (AST/SGOT 45 U/L (12-37); Bilirubin, Total 0.3 mg/dL (0.1-1.0); Blood Urea Nitrogen 26 mg/dL (8-24); Bun/Creatinine Ratio 33.8 (12.0-20.0); CO2, Blood 28 mmol/L (21-32); Calcium, Blood 8.6 mg/dL (8.5-10.1); Chloride, Blood 105 mmol/L (98-108); Creatinine, Blood 0.77 mg/dL (0.40-1.00); Globulin, Blood 3.6 g/dL (2.2-4.0); Glomerular Filtration Rate >60 (60-); Glucose, Blood 112 mg/dL (70-99); Potassium, Blood 3.9 mmol/L (3.5-5.5); Sodium, Blood 141 mmol/L (136-145); Total Protein, Blood 6.7 g/dL (6.4-8.2); Troponin I <0.015 ng/mL (0.000-0.040)
[2019-04-28 07:20] LABS: Digoxin (Lanoxin) 0.73 ug/mL (0.80-2.00)
[2019-04-28] MEDS ORDERED: Aspirin EC81 MG PO (07:41)
[2019-04-28] MEDS ORDERED: HYDR1TAB94 PO (07:42)
--- NOTE | 2019-04-28 08:11 | NUR ---
ADMISSION / ASSUMED CARE: REPORT RECEIVED FROM JASON Meyer RN. ASSUMED CARE OF THIS PT AT APPROX 0700. PT ARRIVED TO UNIT FROM ED AT APPROX 0645. ADMISSION IS NOW COMPLETE. MEDS RECONCILLED PER MED LIST PROVIDED BY PT's . SHE IS CURRENTLY ON 4L NC, WHICH IS HOME DOSE OF O2, W/ SATS > 92%. SHE STS BREATHING HAS IMPROVED SOMEWHAT, BUT IS STILL VISIBLY DYSPNEIC ON EXERTION. MONITOR SHOWS AFIB W/ HR 100-130s. BP STABLE. WILL CONTINUE TO MONITOR & UPDATE NEEDED.
[2019-04-28 13:34] LABS: CPK Creatine Kinase 20 U/L (26-193); Troponin I <0.015 ng/mL (0.000-0.040)
[2019-04-28 16:15] LABS: Source, Urine Clean Catch
[2019-04-28 16:21] LABS: Bilirubin, Urine Neg (Neg); Blood, Urine Neg (Neg); Glucose Qualitative, Urine Neg (Neg); Ketones, Urine Neg (Neg); Leukocyte Esterase, Urine Neg (Neg); Nitrite, Urine Neg (Neg); Protein, Urine Neg (Neg); Urobilinogen, Urine NORM (Normal)
[2019-04-28 16:26] LABS: Appearance, Urine Clear (Clear); Color, Urine Yellow (P-Yellow)
--- NOTE | 2019-04-28 16:32 | NUR ---
ETT ADJUSTMENT: ETT HAS BEEN WITHDRAWN 1 CM BY RT PB. NOW 23 CM AT THE LIP.
--- NOTE | 2019-04-28 18:35 | NUR ---
SHIFT SUMMARY: NO ACUTE CHANGES THIS SHIFT. PT REMAINS A&O, PLEASANT & COOPERATIVE. LS ARE COARSE T/O, CRACKLES IN BASES. PT HAS NONPRODUCTIVE COUGH. 4L NC W/ O2 SATS > 92%. MONITOR SHOWS AFIB W/ BBB, HR 90-110s. BP STABLE. BTx4, PT TOLERATING PO INTAKE W/ NO NAUSEA. VOIDING CLEAR, YELLOW URINE W/O DIFFICULTY. DIURESED WELL FOLLOWING LASIX ADMIN IN ED. SKIN OVERALL CDI. PT HAS NO C/O PAIN THIS SHIFT. WILL CONTINUE TO MONITOR & REPORT OFF TO ONCOMING RN.
--- NOTE | 2019-04-28 19:15 | NUR ---
ASSESSMENT/ASSUMED CARE PT SITTING UP IN BED, AWAKE, A&O. DENIES PAIN. REPORT RECEIVED AT BEDSIDE. PT STATES,"I'M JUST REALLY TIRED". LUNGS CLEAR BUT DECREASED IN THE BASES ON 4 LITERS VIA NC. SOB NOTED WITH ACTIVITY, RESOLVES WITH REST. HEART RATE IRREGULAR-AFIB. BP STABLE. TRACE PEDAL EDEMA. MAEW. SKIN CD&I. BT+ ABD SOFT AND NONTENDER. DENIES N/V. RESP SWAB DONE AND SENT TO LAB. VOIDING CLEAR YELLOW URINE. IV 20G TO LEFT AC SALINE LOCKED, FLUSHED WITHOUT DIFFICULTY. PT MOVING SELF AROUND IN BED.
[2019-04-28 20:49] LABS: Adenovirus Not Detected (NOT DETECT); Bordetella pertussis Not Detected (NOT DETECT); Chlamydophila pneumoniae Not Detected (NOT DETECT); Coronavirus 229E Not Detected (NOT DETECT); Coronavirus HKU1 Not Detected (NOT DETECT); Coronavirus NL63 Not Detected (NOT DETECT); Coronavirus OC43 Not Detected (NOT DETECT); Human Metapneumovirus Not Detected (NOT DETECT); Human Rhinovirus/Enterovirus Not Detected (NOT DETECT); Influenza A Not Detected (NOT DETECT); Influenza A/2009-H1 Not Detected (NOT DETECT); Influenza A/H1 Not Detected (NOT DETECT); Influenza A/H3 Not Detected (NOT DETECT); Influenza B Not Detected (NOT DETECT); Mycoplasma pneumoniae Not Detected (NOT DETECT); Parainfluenza Virus 1 Not Detected (NOT DETECT); Parainfluenza Virus 2 Not Detected (NOT DETECT); Parainfluenza Virus 3 Not Detected (NOT DETECT); Parainfluenza Virus 4 Not Detected (NOT DETECT); Respiratory Syncytial Virus Not Detected (NOT DETECT)
[2019-04-28 21:23] LABS: CPK Creatine Kinase 20 U/L (26-193); Troponin I <0.015 ng/mL (0.000-0.040)
[2019-04-29 03:26] LABS: BASOPHILS ABSOLUTE AUTO 0.02 K/mm3 (0.00-0.23); BASOPHILS PERCENT AUTO 0 % (0-2); EOSINOPHILS PERCENT AUTO 0 % (0-6); Hematocrit 27.9 % (33.0-51.0); Hemoglobin 8.6 g/dL (11.5-16.0); IMMATURE GRAN ABSOLUTE AUTO 0.35 K/mm3 (0.00-0.10); IMMATURE GRAN PERCENT AUTO 2 % (0-1); LYMPHOCYTES PERCENT AUTO 4 % (21-46); MONOCYTES ABSOLUTE AUTO 0.74 K/mm3 (0.16-1.47); MONOCYTES PERCENT AUTO 5 % (4-13); Mean Corpuscular HGB 29.9 pg (26.0-34.0); Mean Corpuscular HGB Conc 30.8 g/dL (31.5-36.5); Mean Corpuscular Volume 97 fL (80-100); Mean Platelet Volume 9.9 fL (9.1-12.4); NEUTROPHILS ABSOLUTE AUTO 14.02 K/mm3 (1.96-9.15); NEUTROPHILS PERCENT AUTO 89 % (41-73); NRBC ABSOLUTE 0.03 K/mm3 (0.00-0.02); NRBC Auto 0.2 /100 WBC (0.0-0.2); Platelet Count 303 K/mm3 (150-400); RDW Coefficient Variation 17.3 % (11.7-14.2); RDW Standard Deviation 62.3 fL (35.1-46.3); Red Blood Cell Count 2.88 M/mm3 (3.80-5.20); White Blood Cell Count 15.73 K/mm3 (4.00-11.30)
[2019-04-29 03:45] LABS: Alanine Aminotransfer (ALT/SGP 41 U/L (12-78); Albumin, Blood 3.1 g/dL (3.4-5.0); Albumin/Globulin Ratio 0.9 (0.8-1.8); Alk Phos 65 U/L (50-136); Anion Gap 10 mmol/L (6-16); Aspartate Aminotrans (AST/SGOT 30 U/L (12-37); Bilirubin, Total 0.3 mg/dL (0.1-1.0); Blood Urea Nitrogen 32 mg/dL (8-24); Bun/Creatinine Ratio 35.1 (12.0-20.0); CO2, Blood 29 mmol/L (21-32); Calcium, Blood 8.6 mg/dL (8.5-10.1); Chloride, Blood 101 mmol/L (98-108); Creatinine, Blood 0.91 mg/dL (0.40-1.00); Globulin, Blood 3.6 g/dL (2.2-4.0); Glomerular Filtration Rate >60 (60-); Glucose, Blood 145 mg/dL (70-99); Potassium, Blood 4.5 mmol/L (3.5-5.5); Sodium, Blood 140 mmol/L (136-145); Total Protein, Blood 6.7 g/dL (6.4-8.2)
--- NOTE | 2019-04-29 05:34 | NUR ---
SHIFT SUMMARY PT SLEPT MOST OF THE NIGHT. UP TO THE BATHROOM AD GEOVANNI. IMPROVED RESP STATUS NOTED. CONT SOB WITH ACTIVITY BUT RESOLVES QUICKLY WITH REST. VSS. PT DENIES PAIN OR DISCOMFORT. O2 CONT AT 4 LITERS VIA NC. RESP EVEN AND NONLABORED. HEART RATE 80-90'S WHILE SLEEPING BUT UP TO 130'S WHEN AWAKE AND AMB IN ROOM. CONT AFIB. REPORT TO ON COMING NURSE
--- NOTE | 2019-04-29 06:02 | NUR ---
NAUSEA PT C/O NAUSEA MED WITH ZOFRAN AND GIVEN CRACKERS.
--- NOTE | 2019-04-29 07:44 | NUR ---
REASSESSMENT PT LYING FLAT IN BED, WATCHING TV. NAD AT THIS TIME. LUNG SOUNDS CLEAR. AFEBRILE. VSS. AFIB, HR 90S. BP WNL. IV SALINE LOCKED. PT C/O NAUSEA BUT STATES IMPROVING AFTER RECIEVING ZOFRAN APPROX 1 HOUR AGO. ABDOMEN IS SOFT AND NONTENDER. A/O X3. 4L NC, SPO2 95%. WILL CONTINUE TO MONITOR.
--- NOTE | 2019-04-29 11:38 | NUR ---
TRANSFER/REPORT REPORT CALLED TO BANDAR MONTERO IN PCU. PT TO BE TRANSFERRED TO PCU 5 AT THIS TIME.
--- NOTE | 2019-04-29 18:22 | NUR ---
END OF SHIFT SUMMARY; PT TRANFERRED TO PCU APPROX NOON TODAY. SHE IS AO X 4 ON ARRIVAL. HAS PLEASANT AFFECT. [employer] TECH COMES TO ROOM TO PROVIDE COPD EDUCATION TO PATIENT. SPOUSE IS IN ROOM. PT REMAINS ON 3 LITERS NC. NO DISTRESS IS NOTED. SHE EATS LUNCH AND HAS NO WANTS OR NEEDS DURING THE AFTERNOON. LUNGS ARE CLEAR IN THE UPPER LOBES AND DIM IN THE BASES. WILL CONTINUE TO MONITOR THIS PATIETN UNTIL REPORT TO NOC SHIFT RN.
--- NOTE | 2019-04-29 18:25 | NUR ---
END OF SHIFT; PT UP TO BEDSIDE COMMODE NUMEROUS TIMES THROUGHOUT DAY. SHE HAS DIARRHEA CONSISTENT WITH C DIFF. PT VERY EMOTIIONAL THIS JUICE SON IS TELLING HER THAT SHE CANNOT GO BACK HOME WITH C DIFF SINCE IT IS CONTAGIOUS AND HOME HEALTH WILL NOT TAKE CARE OF HER IF SHE HAS IT. THIS RN PROVIDES EDUCATION TO SON AND TO PT'S SPOUSE. SPOUSE VERBALIZED UNDERSTANDING HOWEEVER SON IS STILL INISTING THAT "HE KNOWS THAT HOME HEALTH CARE WORKERS " WILL NOT TAKE CARE OF HER" THAT SHE WILL BE RIGHT BACK TO HOSPITAL. [facility] DOES COME TO ROOM TO SPEAK TO PATIENT TODAY. SON LEAVES ROOM PRIOR TO THEM COMING AND REFUSES TO COME BACK TO SPEAK WITH THEM. PT HAD BOTH IV'S INFILTRATE AND POWERGLIDE IS PLACED BY KAL RN IN UPPER LEFT ARM. WILL CONTINUE TO MONITOR THIS PATIENT UNTIL REPORT AND HAND OFF TO NOC SHIFT RN.
--- NOTE | 2019-04-30 02:49 | NUR ---
Assumed care of pt at approx 1900. Pt presents sitting in bed with family at bedside. Pt conversing with family appropriately. Pt is alert and oriented. No apparent sign of distress. VSS. Breathing unlabored at rest, ESTRELLA and dyspneic with conversation. Pt states slight dyspnea is baseline. Pt on 2L NC. See shift assessment for detailed systems assessment. Pt in no apparent sign of distress. Will continue to monitor.
[2019-04-30 04:38] LABS: Albumin, Blood 2.9 g/dL (3.4-5.0); Anion Gap 8 mmol/L (6-16); Blood Urea Nitrogen 41 mg/dL (8-24); Bun/Creatinine Ratio 42.9 (12.0-20.0); CO2, Blood 30 mmol/L (21-32); Calcium, Blood 8.2 mg/dL (8.5-10.1); Chloride, Blood 102 mmol/L (98-108); Creatinine, Blood 0.96 mg/dL (0.40-1.00); Glomerular Filtration Rate 59 (60-); Glucose, Blood 101 mg/dL (70-99); Magnesium, Blood 2.5 mg/dL (1.6-2.4); Phosphorus, Blood 3.3 mg/dL (2.5-4.9); Potassium, Blood 4.2 mmol/L (3.5-5.5); Sodium, Blood 140 mmol/L (136-145)
--- NOTE | 2019-04-30 05:43 | NUR ---
Shift Summary No acute changes this shift. VSS. No changes on tele. no changes in oxygen demand, breathing even and unlabored. Pt sleeping throughout shift, able to ambulate to bathroom without assistance, steady gait. Pt with no complaints of SOB or ESTRELLA, no dizziness. Pt able to make needs known, uses call light appropriately. Pt remains alert and oriented, no changes to mentation noted. No changes from initial shift assessment. Will continue to monitor and provide care per orders.
--- NOTE | 2019-04-30 08:43 | NUR ---
NOTE PT KOURTNEY GOODE. STATED THAT SHE IS FEELING MUCH BETTER THAN YESTERDAY. PT IS GETS VERY SOB WITH TALKING. SATS DROP FROM 93% TO 88%. TALKED ABOUT GOING HOME. WITH PT LAST EXPREIENCE SHE IS RELUCTANT TO GO HOME TOO SOON. CONTINUE POT.
--- NOTE | 2019-04-30 13:56 | NUR ---
Pt visit this afternnon. Pt is resting in bed upon arrival. is present and other family members arrive shortly into the visit. Pt reports a tolerable 2/10 pain in her joints due to arthritis. She reports mild but managed dyspnea. Pt also reports significant anxiety due to being in the hospital and having family arriving from out of town. Pt also reports experiencing routine insomnia. Engaged in therapeutic discussion regarding advanced care planning. Pt lives at home with her . Discussed disease process and educated on the importance of routine discussions with PCP in order to plan accordingly. Suggested at some point in disease process the need for assistance with care may need to be considered. Listened as Pt reports already having discussion with her PCP and plan of care will be focused on qualitity of life vs longevity. Discussed AD/POLST and Pt expresses interest in AD. Educated on life sustaining measures and sections to complete with V/U made by Pt. Instructed Pt to call palliative care with any questions regarding completing AD. Pt reports no othe concerns at this time. Spoke with bedside nurse Jessica and discussed case. Called and left voice message with Dr Yi requesting consideration of Trazodone or something to aid with insomnia. Palliative Care will remain available.
--- NOTE | 2019-04-30 16:06 | NUR ---
NOTE PT UP IN WHEELCHAIR WITH A NEW O2 TANK. SHE IS SITTING DOWN BY THE ELEVATORS VISITING. THIS NURSE CHECKED HER OXYGEN TANK TWICE WHILE SHE WAS VISITING. VSS. PT ABLE TO TOLERATE TRANSFERING TO /C WITH MILD VOICE STRAIN AND SOB. RECOVERS QUICKLY. JONATHON HERE. VERY CARING. CONTINUE POT.
--- NOTE | 2019-05-01 04:23 | NUR ---
SHIFT SUMMARY: PATIENT SLEPT WELL THIS SHIFT, CALL LIGHT WITHIN REACH, VSS, BED LOW AND LOCKED, NO ISSUES NOTED AT THIS TIME.
[2019-05-01 04:31] LABS: Anion Gap 7 mmol/L (6-16); Blood Urea Nitrogen 37 mg/dL (8-24); Bun/Creatinine Ratio 42.6 (12.0-20.0); CO2, Blood 30 mmol/L (21-32); Chloride, Blood 103 mmol/L (98-108); Creatinine, Blood 0.87 mg/dL (0.40-1.00); Glomerular Filtration Rate >60 (60-); Glucose, Blood 102 mg/dL (70-99); Phosphorus, Blood 3.1 mg/dL (2.5-4.9); Sodium, Blood 140 mmol/L (136-145)
[2019-05-01] MEDS ORDERED: ELIQUIS2.5 MG PO (11:10)
[2019-05-01] MEDS ORDERED: CODEINE-GUAIFE120 ML PO (11:18)
[2019-05-01] MEDS ORDERED: MELA3 PO (11:19)
[2019-05-01] MEDS ORDERED: FURO40 PO (11:20)
--- NOTE | 2019-05-01 12:17 | NUR ---
DISCAHRGE HOME PT DISCHARGE HOME PER ORDER. PERSCRIPTIONS FAXED TO [facility] PER REQUEST. PT ALREADY HAD APPOINTMENTS WITH HER PCP AND DR CARUSO. IV REMOVED. PRESSURE DRESSING APPLIED. CONTINUE POT.
== END 2019-05-01 12:20 | disposition home or self-care (01) | DRG 291 ==
LOC: ER 05:09 → ICUW 06:09 → ICUE 07:02 → PCU 04-29 11:55
PROVIDERS: Emergency Medicine; Internal Medicine; ADMIT Internal Medicine
DX: I11.0 Hypertensive heart disease with heart failure (principal); J96.21 Acute and chronic respiratory failure with hypoxia; I50.31 Acute diastolic (congestive) heart failure; J70.0 Acute pulmonary manifestations due to radiation; I16.0 Hypertensive urgency; J44.9 Chronic obstructive pulmonary disease, unspecified; I48.2 Chronic atrial fibrillation; Z79.01 Long term (current) use of anticoagulants; I44.7 Left bundle-branch block, unspecified; D72.829 Elevated white blood cell count, unspecified; E03.9 Hypothyroidism, unspecified
CPT/HCPCS: 0099U; 36415; 71045; 71046; 80053; 80069; 80162; 81003; 82550; 83735; 83880; 84145; 84484; 85025; 85027; 87070; 87205; 93005; 93010; 94640; 94644; 94664; 94667; 94760; 96374; 96375; 97110; 97162; 97165; 97535; 98960; 99285-25; C9113; J1940; J1956; J2270; J2405; J7512

== ENCOUNTER → 2019-06-16 | Outpatient (CLI) | payer OTHER ==
[~2019-06-16] MED LIST changes: +Aspirin EC81 MG PO; +CODEINE-GUAIFE120 ML PO; +CYCL10 PO; +DULERA 100 MCG/13 GM INH; +FURO40 PO; +HYDR1TAB94 PO; +MELA3 PO; +SPIRIVA RESPIMAT4 GM INH; +THERA-D2000 UNIT PO; +THERA1 EACH PO; +ZINC220 PO; +[UNRECOGNIZED DRUG - OTHER] PO
[2019-06-16 15:19] LABS: BASOPHILS ABSOLUTE AUTO 0.06 K/mm3 (0.00-0.23); BASOPHILS PERCENT AUTO 0 % (0-2); EOSINOPHILS ABSOLUTE AUTO 0.03 K/mm3 (0.00-0.68); EOSINOPHILS PERCENT AUTO 0 % (0-6); Hematocrit 25.2 % (33.0-51.0); Hemoglobin 7.8 g/dL (11.5-16.0); IMMATURE GRAN ABSOLUTE AUTO 0.34 K/mm3 (0.00-0.10); IMMATURE GRAN PERCENT AUTO 2 % (0-1); LYMPHOCYTES ABSOLUTE AUTO 0.62 K/mm3 (0.84-5.20); LYMPHOCYTES PERCENT AUTO 4 % (21-46); MONOCYTES ABSOLUTE AUTO 0.52 K/mm3 (0.16-1.47); MONOCYTES PERCENT AUTO 3 % (4-13); Mean Corpuscular HGB 28.5 pg (26.0-34.0); Mean Corpuscular Volume 92 fL (80-100); NEUTROPHILS ABSOLUTE AUTO 15.99 K/mm3 (1.96-9.15); NEUTROPHILS PERCENT AUTO 91 % (41-73); NRBC ABSOLUTE 0.02 K/mm3 (0.00-0.02); NRBC Auto 0.1 /100 WBC (0.0-0.2); Platelet Count 339 K/mm3 (150-400); RDW Coefficient Variation 17.4 % (11.7-14.2); RDW Standard Deviation 58.5 fL (35.1-46.3); Red Blood Cell Count 2.74 M/mm3 (3.80-5.20); White Blood Cell Count 17.56 K/mm3 (4.00-11.30)
== END | disposition home or self-care (01) ==
LOC: LAB SHORT 14:58 → LAB 14:58
PROVIDERS: Registered Nurse Oncology
DX: C34.11 Malignant neoplasm of upper lobe, right bronchus or lung (principal)
CPT/HCPCS: 85025

== ENCOUNTER 2019-06-27 19:14 | Inpatient (IN) | payer OTHER ==
[~2019-06-27] VITALS: Ht 167.6 cm; Wt 73.9 kg
[~2019-06-27 19:14] MED LIST changes: -CYCL10 PO; -DULERA 100 MCG/13 GM INH; -SPIRIVA RESPIMAT4 GM INH; -THERA-D2000 UNIT PO; -THERA1 EACH PO; -ZINC220 PO; -[UNRECOGNIZED DRUG - OTHER] PO
[2019-06-27 20:21] LABS: BASOPHILS ABSOLUTE AUTO 0.02 K/mm3 (0.00-0.23); BASOPHILS PERCENT AUTO 0 % (0-2); EOSINOPHILS ABSOLUTE AUTO 0.01 K/mm3 (0.00-0.68); EOSINOPHILS PERCENT AUTO 0 % (0-6); Hematocrit 25.8 % (33.0-51.0); Hemoglobin 7.7 g/dL (11.5-16.0); IMMATURE GRAN PERCENT AUTO 1 % (0-1); LYMPHOCYTES ABSOLUTE AUTO 0.41 K/mm3 (0.84-5.20); LYMPHOCYTES PERCENT AUTO 3 % (21-46); MONOCYTES ABSOLUTE AUTO 0.78 K/mm3 (0.16-1.47); MONOCYTES PERCENT AUTO 5 % (4-13); Mean Corpuscular HGB 31.8 pg (26.0-34.0); Mean Corpuscular HGB Conc 29.8 g/dL (31.5-36.5); Mean Platelet Volume 9.7 fL (9.1-12.4); NEUTROPHILS ABSOLUTE AUTO 14.25 K/mm3 (1.96-9.15); NEUTROPHILS PERCENT AUTO 91 % (41-73); NRBC Auto 0.6 /100 WBC (0.0-0.2); Platelet Count 279 K/mm3 (150-400); RDW Coefficient Variation 26.4 % (11.7-14.2); RDW Standard Deviation 95.7 fL (35.1-46.3); Red Blood Cell Count 2.42 M/mm3 (3.80-5.20); White Blood Cell Count 15.67 K/mm3 (4.00-11.30)
[2019-06-27 20:31] LABS: Mean Corpuscular Volume 107 fL (80-100)
[2019-06-27 20:42] LABS: Alanine Aminotransfer (ALT/SGP 56 U/L (12-78); Albumin, Blood 3.1 g/dL (3.4-5.0); Albumin/Globulin Ratio 0.9 (0.8-1.8); Alk Phos 85 U/L (50-136); Anion Gap 7 mmol/L (6-16); Aspartate Aminotrans (AST/SGOT 40 U/L (12-37); Bilirubin, Total 0.3 mg/dL (0.1-1.0); Blood Urea Nitrogen 28 mg/dL (8-24); Bun/Creatinine Ratio 24.6 (12.0-20.0); CO2, Blood 31 mmol/L (21-32); Calcium, Blood 9.1 mg/dL (8.5-10.1); Chloride, Blood 99 mmol/L (98-108); Creatinine, Blood 1.14 mg/dL (0.40-1.00); Globulin, Blood 3.6 g/dL (2.2-4.0); Glomerular Filtration Rate 48 (60-); Glucose, Blood 163 mg/dL (70-99); Potassium, Blood 3.8 mmol/L (3.5-5.5); Sodium, Blood 137 mmol/L (136-145); Total Protein, Blood 6.7 g/dL (6.4-8.2); Troponin I <0.015 ng/mL (0.000-0.040)
[2019-06-27] MEDS ORDERED: Prednisone10 MG PO (21:54)
[2019-06-27] MEDS ORDERED: ASCO500 PO (21:55)
[2019-06-27] MEDS ORDERED: THERA-D2000 UNIT PO (21:55)
[2019-06-27] MEDS ORDERED: THERA1 EACH PO (21:55)
[2019-06-27] MEDS ORDERED: SPIRIVA RESPIMAT4 GM INH (21:56)
[2019-06-27] MEDS ORDERED: CYCL10 PO ×2 (21:58→22:54)
--- NOTE | 2019-06-27 21:58 | NUR ---
RECEIVED REPORT FROM HARSHAL ALLEN RN. PT ARRIVED TO RM 305 [facility]IA [employer]. A/O. PLEASANT AND COOPERATIVE. GETS VERY SOB WITH EXERTION. ON 3L VIA NC. MOVES INDEPENDENTLY. PT ORIENTED TO CALL LT SYSTEM. CALL LT IN REACH. WILL MONITOR AND PROVIDE CARE T/O SHIFT.
[2019-06-27] MEDS ORDERED: DULERA 100 MCG/13 GM INH ×2 (21:59→22:53)
[2019-06-27] MEDS ORDERED: ZINC220 PO (22:51)
[2019-06-27] MEDS ORDERED: [UNRECOGNIZED DRUG - OTHER] PO (22:55)
--- NOTE | 2019-06-28 04:34 | NUR ---
SHIFT SUMMARY: ER ADMIT. A/O, INDEP IN RM. COOPERATIVE WITH CARE. ON 3L VIA NC. DYSPNEA WITH EXERTION, TAKES A WHILE TO RECOVER. HX OF LUNG CA. LAST RADIATION TREATMENT IN NOVEMBER 2018. RECEIVED 1 UNIT PRBC FOR HGB OF 7.7, HCT 25. TOLERATED INFUSING WELL. VSS. NO COMPLAINTS. WILL CONTINUE TO MONITOR AND PROVIDE CARE UNTIL SHIFT REPORT.
[2019-06-28 05:10] LABS: Hematocrit 27.7 % (33.0-51.0); Hemoglobin 8.3 g/dL (11.5-16.0); NRBC Auto 0.8 /100 WBC (0.0-0.2); Platelet Count 237 K/mm3 (150-400); RDW Coefficient Variation 26.5 % (11.7-14.2); RDW Standard Deviation 91.6 fL (35.1-46.3); Red Blood Cell Count 2.77 M/mm3 (3.80-5.20); White Blood Cell Count 12.85 K/mm3 (4.00-11.30)
[2019-06-28 05:13] LABS: Mean Corpuscular Volume 100 fL (80-100)
--- NOTE | 2019-06-28 12:00 | NUR ---
SPOKE WITH MD ON PHONE AND IN HALLWAY ABOUT PTS DYSPNEA AND ELEVATED HR. TELE STARTED AND EKG COMPLETED. REGULAR A.M. MEDS GIVEN PER MD REQUEST. PT DYSPNEA REMAINS BUT APPEARS BETTER THAN EARLIER IN A.M. FAMILY AT BEDSIDE.
--- NOTE | 2019-06-28 18:05 | NUR ---
Spiritual Care intial note: Met with Sravanthi and her at bedside. She was very SOB and conversation was difficult for her. She admits that she does not know what is happening with her lungs. She's been treated for lung cancer, but apparently has not been told how that went. She admits fear. Spouse was very quiet throughout visit. She allowed me to pray for her at bedside. She has not been active in her yessi community and said she appreciaited prayer/spiritual support. I will remain available.
--- NOTE | 2019-06-28 18:43 | NUR ---
SHIFT SUMMARY PT INDEPENDENT TO BSC. INCREASE IN DYSPNEA AFTER ACTIVITY AND IS STILL SLOW TO RECOVER. HEART RATE HAS SLOWLY INCREASED THROUGH AFTERNOON BEYOND 120'S THAT MD WAS AWARE OF. SPOKE WITH MD ON PHONE AND NEW ORDERS IN PLACE. CARDIZEM GIVEN. DYSPNEA BETTER THIS EVENING BUT STILL SLOW TO RECOVER WITH ANY ACTIVITY.
--- NOTE | 2019-06-29 02:43 | NUR ---
06/29/19 0015 Pt had gotten herself up to the bedside commode. Pt struggled to regain her breath afterward, sitting on side of bed. Pt was very anxious. Pt reinstructed to breath in through her nose and out her mouth, Assisted to tripod on bedside table. Respiratory therapy called to assess pt. He reported crackles 2/3 up on rt side and in L base. Pt was put on an oximizer at 10 liters to get sats above 90 after resp tx given. Pt heart rate is 140's on average but up to 160's. Resp rate 38-40. Call Placed to hospitalist at 0045. Repeat call placed at 0100. Dr. Murcia notified of pt history and status. Plan to transfer to PCU for diltiazem gtt and to give lasix. Pt was notified of pending transfer. Pt heart rate has decreased to 130's and she is breathing easier at this time 0115. Report called to Praveena MONTERO. Pt transferred to ICU 3 as PCU status. Pt remains on 10 liters via oximizer but is breathing easier. Call placed to her , message left when no answer. Pt transferred with all belongings, phone, phone cord and glasses in purse.
[2019-06-29 03:33] LABS: Source, Urine Catheter
[2019-06-29 03:38] LABS: BASOPHILS ABSOLUTE AUTO 0.06 K/mm3 (0.00-0.23); BASOPHILS PERCENT AUTO 0 % (0-2); EOSINOPHILS ABSOLUTE AUTO 0.16 K/mm3 (0.00-0.68); EOSINOPHILS PERCENT AUTO 1 % (0-6); Hematocrit 28.8 % (33.0-51.0); Hemoglobin 8.8 g/dL (11.5-16.0); IMMATURE GRAN PERCENT AUTO 1 % (0-1); LYMPHOCYTES ABSOLUTE AUTO 0.66 K/mm3 (0.84-5.20); LYMPHOCYTES PERCENT AUTO 5 % (21-46); MONOCYTES ABSOLUTE AUTO 0.64 K/mm3 (0.16-1.47); MONOCYTES PERCENT AUTO 4 % (4-13); Mean Corpuscular HGB 30.2 pg (26.0-34.0); Mean Corpuscular HGB Conc 30.6 g/dL (31.5-36.5); Mean Corpuscular Volume 99 fL (80-100); Mean Platelet Volume 9.7 fL (9.1-12.4); NEUTROPHILS ABSOLUTE AUTO 13.02 K/mm3 (1.96-9.15); NEUTROPHILS PERCENT AUTO 88 % (41-73); NRBC ABSOLUTE 0.14 K/mm3 (0.00-0.02); NRBC Auto 0.9 /100 WBC (0.0-0.2); Platelet Count 244 K/mm3 (150-400); RDW Coefficient Variation 26.5 % (11.7-14.2); RDW Standard Deviation 89.5 fL (35.1-46.3); Red Blood Cell Count 2.91 M/mm3 (3.80-5.20); White Blood Cell Count 14.74 K/mm3 (4.00-11.30)
[2019-06-29 03:38] LABS: Bilirubin, Urine Neg (Neg); Blood, Urine Neg (Neg); Glucose Qualitative, Urine Neg (Neg); Ketones, Urine Neg (Neg); Leukocyte Esterase, Urine Neg (Neg); Nitrite, Urine Neg (Neg); Protein, Urine Neg (Neg); Urobilinogen, Urine NORM (Normal)
[2019-06-29 03:43] LABS: Appearance, Urine Clear (Clear); Color, Urine Yellow (P-Yellow)
[2019-06-29 03:54] LABS: Base Excess Venous 7.2 mmol/L; Bicarbonate Venous 30.8 mmol/L (24.0-30.0); PO2 Venous 97.3 mmHg (38-42); pH Blood Venous 7.57 (7.34-7.37)
[2019-06-29 03:55] LABS: Calcium, Blood 8.6 mg/dL (8.5-10.1); Creatinine, Blood 1.19 mg/dL (0.40-1.00); Potassium, Blood 3.6 mmol/L (3.5-5.5)
--- NOTE | 2019-06-29 06:00 | NUR ---
PT TRANSFERED TO ICU-3 PCU STATUS. PT WAS VERY DYSPNEIC & TACHYPNEIC, ON 10L OXYMISER, PT HAS BEEN TITRATED TO 13L OXYMISER. PT CONT TO BE ALERT & W REMARKABLE SENSE OF HUMOR CONSIDERING PRESENT STATUS. NEW IV STARTED & CARDIZEM GTT WAS STARTED AT 10MG/HR & TITRATED TO 15MG AT THIS TIME. BANUELOS CATH WAS PLACED W ASSIST, (PT UNABLE TO LAY FLAT), 500CC CLEAR DARIUSZ URINE. PT HAD MODERATE SIZE FIRM BROWN STOOL. DR LUCAS UPDATED W PT STATUS & ORDER REC'D FOR DSS. PT TEXTED SON THAT SHE WAS TRANSFERED TO ICU. WILL REPORT TO [facility].
--- NOTE | 2019-06-29 08:30 | NUR ---
Patient sitting up in bed finished about 20% of breakfas=t and 240 ml fluids. She is very exertional SOB and is currently on 7L O2 via Oximizer and sats low 90%'s. She has 20ga LFa and drtessing intact and site WNL's and is infuaing Cardizem 15mg/hr for A-Fib in the upper 90's. She tolerated am meds with liquids. She has 14Fr. sommers draining to gravity. She is alert and able to communicate her needs. Placed fan at bedside to blow air by her and states feels better
--- NOTE | 2019-06-29 10:30 | NUR ---
Patient sats decreased to upper 80's and increased O2 7L O2 and is currentl 90%. She has had family show up and is talking alittle more and directed her to breath deep and exhale pursed lips. HR 90-100's A-Fib. Systolics low 100's.
--- NOTE | 2019-06-29 14:13 | NUR ---
Dr Manjarrez by and spoke with family and added dilaudid for some pain and anxiety and wrote for pul. consult and he spoke directly with Dr Gordon. She placed her on bipap 10/8 at 40% and is breathing more comfortable. at bedside. Prior she was working a little harder with crackles t/o. Dr Baker also added solumedrol. Patient states feeling better. Had long conversatin with son and discussed thier concerns and questions.
--- NOTE | 2019-06-29 14:15 | NUR ---
reduced cardizem to 10mg/hr for HR 80's
--- NOTE | 2019-06-29 15:29 | NUR ---
Took patient to CT for PE study on 12L O2 via oximizer. Reduced cardizem gtt to 5ml/hr for HR 70's, systolics 116. She came back to unit and placed BIPAP back on and now sats 94%.
[2019-06-29 15:42] LABS: PO2 Arterial 64.6 mmHg (80-100); pH Blood Arterial 7.46 (7.35-7.45)
--- NOTE | 2019-06-29 15:46 | NUR ---
Dr Gordon is making patient ICU status, ABG done, no changes to BIPAP
--- NOTE | 2019-06-29 17:31 | NUR ---
Patient sitting up in bed eating dinner that her brought Steve roland beehf sandwich. She called and said she is ready to go back pn BIPAP. HR A-Fib 70-80's and systolic low 100's. Socorro MONTERO placing PowerGlide for multiple IV's
--- NOTE | 2019-06-29 17:34 | NUR ---
AirVo was set at 40-40 while eating
--- NOTE | 2019-06-29 20:21 | NUR ---
CARE ASSUMED REPORT RECEIVED, CARE ASSUMED AT 1900. PT ALERT, ORIENTED, DENIES NEEDS AT THIS TIME. AT BEDSIDE FOR FIRST HOUR OF SHIFT. PT ALERNATING BETWEEN BIPAP AND OXYMIZER AND TOLERATING WELL. AT START OF SHIFT, DILTIAZEM AT 5. HR 60'S-70'S. BP STABLE. DILTIAZEM TURNED OFF. SINCE THEN, HR CONSISTENTLY IN 80'S-90'S. PO DILTIAZEM ORDERED FOR TONIGHT. WILL CONTINUE TO MONITOR CLOSELY. PT LEFT WILL CALL LIGHT IN PLACE, AGREES TO CALL FOR NEEDS.
[2019-06-30 04:31] LABS: BASOPHILS ABSOLUTE AUTO 0.01 K/mm3 (0.00-0.23); BASOPHILS PERCENT AUTO 0 % (0-2); EOSINOPHILS PERCENT AUTO 0 % (0-6); Hematocrit 26.8 % (33.0-51.0); Hemoglobin 8.2 g/dL (11.5-16.0); IMMATURE GRAN ABSOLUTE AUTO 0.08 K/mm3 (0.00-0.10); IMMATURE GRAN PERCENT AUTO 1 % (0-1); LYMPHOCYTES ABSOLUTE AUTO 0.26 K/mm3 (0.84-5.20); LYMPHOCYTES PERCENT AUTO 3 % (21-46); MONOCYTES ABSOLUTE AUTO 0.18 K/mm3 (0.16-1.47); MONOCYTES PERCENT AUTO 2 % (4-13); Mean Corpuscular HGB 30.7 pg (26.0-34.0); Mean Corpuscular HGB Conc 30.6 g/dL (31.5-36.5); Mean Corpuscular Volume 100 fL (80-100); Mean Platelet Volume 10.2 fL (9.1-12.4); NEUTROPHILS PERCENT AUTO 95 % (41-73); NRBC ABSOLUTE 0.02 K/mm3 (0.00-0.02); NRBC Auto 0.2 /100 WBC (0.0-0.2); Platelet Count 219 K/mm3 (150-400); RDW Coefficient Variation 24.8 % (11.7-14.2); RDW Standard Deviation 88.3 fL (35.1-46.3); Red Blood Cell Count 2.67 M/mm3 (3.80-5.20); White Blood Cell Count 9.83 K/mm3 (4.00-11.30)
[2019-06-30 04:47] LABS: Bun/Creatinine Ratio 26.7 (12.0-20.0); Calcium, Blood 8.6 mg/dL (8.5-10.1); Creatinine, Blood 1.31 mg/dL (0.40-1.00); Magnesium, Blood 1.8 mg/dL (1.6-2.4); Potassium, Blood 3.5 mmol/L (3.5-5.5)
--- NOTE | 2019-06-30 05:56 | NUR ---
SUMMARY PT HAS SLEPT MAJORITY OF NIGHT. SON ROOMING IN. PT HAS MAINTAINED HR IN 70'S-90'S WITH DILTIAZEM DRIP OFF. BP STABLE. BIPAP SETTINGS UNCHANGED WHICH SHE HAS WORN MAJORITY OF NIGHT. THIS MORNING PT SWITCHED TO AIRVO AND REQUIRED TITRATION OF FIO2 TO 50%. LUNG SOUNDS IMPROVED THIS MORNING. BANUELOS CONTINUES TO DRAIN CLEAR, YELLOW URINE. PT CALLING APPROPRIATELY FOR NEEDS.
--- NOTE | 2019-06-30 07:10 | NUR ---
REPORT TO KYLAH PENA AND SUMI RN TO ASSUME CARE
--- NOTE | 2019-06-30 09:09 | NUR ---
ASSUMED CARE OF PT AT 0700. REPORT FROM TORY MONTERO. PT REPORTS INTERMITTANT USED OF BIPAP LAST NOC. STATES SOB IMPROVED WHEN SHE USES BIPAP, CURRENTLY ON AERVO 40L/50% FIO2. SPEAKING IN FULL SENTANCES. PT P/W/D. LUNGS CLEAR. OCCASIONAL COUGH. PT REQUESTING TO GET UP TO BEDSIDE COMMODE FOR BM. PT TRANSFERS BACK TO BED s ASSISTANCE. REPORTS DYSPNEA, PT TACHYPENIC, ANXIOUS, O2 SATS REMAINED >95%. PLACED ON BIPAP 10/8 40% FOR APPROX 20 MINUTES, PT REPORTS SOB IMPROVED AND REQUESTING TO GO BACK TO AERVO. BANUELOS IN PLACE, PATENT, DRAINING TO GRAVITY. POWER GLIDE TO LEFT UPPER ARM. CALL LIGHT IN REACH. WILL CONTINUE TO MONITOR.
--- NOTE | 2019-06-30 10:27 | NUR ---
DR HOYT AT BEDSIDE FOR ASSESSMENT. PT CONTINUES TO ALTERNATE AERVO AND BIPAP. PT c LABORED RESP, INCREASED DIFFICULTIES SPEAKING IN FULL SENTANCES. O2 SATS REMAIN >95%. PT ANXIOUS WHEN SOB. FAMILY AT BEDSIDE. WILL CONTINUE TO MONITOR.
--- NOTE | 2019-06-30 13:43 | NUR ---
PT RESTING IN BED. CONTINUES TO HAVE INTERMITTANT EPISODES OF SOB. RELIEVED c BIPAP PLACEMENT. FAMILY AT BEDSIDE. LUNGS COARSE IN BASES.
--- NOTE | 2019-06-30 17:53 | NUR ---
SHIFT SUMMARY PT ALTERNATED BETWEEN AERVO AND BIPAP MULTIPLE TIMES DURING DAY. INCREASED WORK OF BREATHING, TACHYPENIC c MINIMAL EXERSION. RECOVERS WELL c BIPAP USE. NONE OF THESE EPISODES THIS AFTERNOON POST ATIVAN ADMINSTRATION. LUNGS REMAIN COARSE IN BASES. SPEAKING IN FULL SENTANCES. PT STATUS CHANGED TO PCU. REPORT TO ONCOMING NURSE.
--- NOTE | 2019-06-30 22:07 | NUR ---
PT RESTING IN BED. DENIES PAIN AND N/V. GETS SOB WITH ANY EXERTION EVEN JUST TALKING. WAS ON AIRVO BUT HAD TO SWITCH TO BIPAP AFTER REPOSITIONING TO RECOVER PT. IT ONLY TOOK 15 MINS ON THE BIPAP BEFORE PT WAS READY TO GO BACK ON THE AIRVO. NO SIGN OF DISTRESS NOW. USES CALL LIGHT APPROPRIATELY.
--- NOTE | 2019-07-01 00:17 | NUR ---
PT RESTING IN BED, NO REQUESTS. ABLE TO MOVE HERSELF FROM SIDE TO SIDE.
[2019-07-01 03:38] LABS: BASOPHILS ABSOLUTE AUTO 0.02 K/mm3 (0.00-0.23); BASOPHILS PERCENT AUTO 0 % (0-2); EOSINOPHILS PERCENT AUTO 0 % (0-6); Hematocrit 26.9 % (33.0-51.0); Hemoglobin 8.3 g/dL (11.5-16.0); IMMATURE GRAN ABSOLUTE AUTO 0.19 K/mm3 (0.00-0.10); IMMATURE GRAN PERCENT AUTO 1 % (0-1); LYMPHOCYTES ABSOLUTE AUTO 0.26 K/mm3 (0.84-5.20); LYMPHOCYTES PERCENT AUTO 1 % (21-46); MONOCYTES ABSOLUTE AUTO 0.63 K/mm3 (0.16-1.47); MONOCYTES PERCENT AUTO 3 % (4-13); Mean Corpuscular HGB 30.5 pg (26.0-34.0); Mean Corpuscular HGB Conc 30.9 g/dL (31.5-36.5); Mean Corpuscular Volume 99 fL (80-100); Mean Platelet Volume 10.2 fL (9.1-12.4); NEUTROPHILS ABSOLUTE AUTO 19.33 K/mm3 (1.96-9.15); NEUTROPHILS PERCENT AUTO 95 % (41-73); NRBC ABSOLUTE 0.03 K/mm3 (0.00-0.02); NRBC Auto 0.1 /100 WBC (0.0-0.2); Platelet Count 258 K/mm3 (150-400); RDW Coefficient Variation 24.7 % (11.7-14.2); RDW Standard Deviation 84.8 fL (35.1-46.3); Red Blood Cell Count 2.72 M/mm3 (3.80-5.20); White Blood Cell Count 20.43 K/mm3 (4.00-11.30)
[2019-07-01 03:56] LABS: Calcium, Blood 8.9 mg/dL (8.5-10.1); Creatinine, Blood 1.72 mg/dL (0.40-1.00); Phosphorus, Blood 5.1 mg/dL (2.5-4.9); Potassium, Blood 3.4 mmol/L (3.5-5.5)
--- NOTE | 2019-07-01 04:33 | NUR ---
PT WAS SLEEPING WITH AIRVO ON BUT WOKE UP SOB. PLACED BIPAP AND PT REQUESTED ATIVAN TO HELP CALM HER DOWN. LS COARSE T/O.
--- NOTE | 2019-07-01 06:14 | NUR ---
SUMMARY PT WAS ON AND OFF BIPAP ALL NIGHT. WHEN OFF BIPAP SHE IS ON AIRVO. PT IS SOB WITH ANY EXERTION EVEN JUST TALKING. THIS AM SHE BECAME SOB AND WAS ANXIOUS. GAVE ATIVAN AND PUT ON BIPAP BUT PT CONTINUED TO BE SOB. LS HAD CRACKLES SCATTERED. GAVE AM LASIX DOSE EARLY. PT IS ALSO HAVING MOD AMT OF PINK/RED SPUTUM. PT IS NOW RESTING QUIETLY ON THE BIPAP. CALL LIGHT IN REACH.
--- NOTE | 2019-07-01 07:28 | NUR ---
ASSUMED CARE: RECEIVED REPORT FROM NOC RN. PT CURRENTLY ON BIPAP RESTING. NO ACUTE DISTRESS NOTED. EVEN CHEST RISE AND FALL. HR IN THE 80'S APPEARS TO BE A-FIB. WILL CONTINUE TO MONITOR AND ASSESS FURTHER.
--- NOTE | 2019-07-01 09:00 | NUR ---
RESPRATORY DISTRESS: BREAKFAST TRAY IN FRONT OF PT UPON ENTERING THE ROOM. PT APPEARS TO BE IN ACUTE RESPRATORY DISTRESS RESPRATION RATE IS INCREASED TO APPROX 24 OR HIGHER. LABORED AND IRREGULAR BREATHING NOTED. PT STATES INCREASED ANXIETY. KARO CONDE IS CURRENTLY IN A CODE AT THIS TIME WILL NOTIFY ONCE AVAILABLE.
--- NOTE | 2019-07-01 10:30 | NUR ---
CHANGE TO ICU STATUS: DR KARO MCCANN IN TO ASSESS THE PT. AGREES PT IS NOTED TO HAVE LABORED AND INCREASED RESPRATIONS, ORDER FOR ATIVAN IV GIVEN PER ORDERS D/T PT BREATHING TO FAST AND LABORED FOR ANYTHING BY MOUTH. CHANGED TO ICU STATUS AT THIS TIME D/T RESPRATORY STATUS.
--- NOTE | 2019-07-01 10:50 | NUR ---
Clinical Visit: Pt alert, oriented. She is reporting 3/10 pain in her lower back. States that this is a chronic problem. She takes vicodin at home. She would like some medication to help with this symptom. Pt is short of breath with speaking. Able to talk 1-2 words at a time. Pt is emotionally fragile. Reports that she has been a strong woman all her life, and now she feels as though "God is punishing me because I've always been very judgemental about people that have anxiety and panic attacks. Now I'm doing it." She admits to feeling out of control and helpless. She states, "I don't know who I am anymore." Allowed pt to express emotions. She is hopeful for a full recovery. She appears fearful of the future and very uncertain how this will "all work out." Pt reports that she wasn't able to sleep night before last, but last night, she was able to sleep adequately and feels more rested. She states she "will take anxiety medication anytime," to control symtpoms. She is so miserable with anxiety. Updated pt's nurse. Pt was given ativan early this AM, but it was a one time dose. Pt has been too out of breath to take her morning pills, but she will administer them now. No other concerns at this time.
[2019-07-01 12:14] LABS: BASOPHILS ABSOLUTE AUTO 0.01 K/mm3 (0.00-0.23); BASOPHILS PERCENT AUTO 0 % (0-2); EOSINOPHILS PERCENT AUTO 0 % (0-6); Hematocrit 26.6 % (33.0-51.0); Hemoglobin 8.2 g/dL (11.5-16.0); IMMATURE GRAN ABSOLUTE AUTO 0.27 K/mm3 (0.00-0.10); IMMATURE GRAN PERCENT AUTO 1 % (0-1); LYMPHOCYTES ABSOLUTE AUTO 0.23 K/mm3 (0.84-5.20); LYMPHOCYTES PERCENT AUTO 1 % (21-46); MONOCYTES ABSOLUTE AUTO 0.85 K/mm3 (0.16-1.47); MONOCYTES PERCENT AUTO 4 % (4-13); Mean Corpuscular HGB 31.1 pg (26.0-34.0); Mean Corpuscular HGB Conc 30.8 g/dL (31.5-36.5); Mean Corpuscular Volume 101 fL (80-100); Mean Platelet Volume 10.1 fL (9.1-12.4); NEUTROPHILS ABSOLUTE AUTO 18.44 K/mm3 (1.96-9.15); NEUTROPHILS PERCENT AUTO 93 % (41-73); NRBC ABSOLUTE 0.04 K/mm3 (0.00-0.02); NRBC Auto 0.2 /100 WBC (0.0-0.2); Platelet Count 270 K/mm3 (150-400); RDW Coefficient Variation 25.2 % (11.7-14.2); RDW Standard Deviation 88.2 fL (35.1-46.3); Red Blood Cell Count 2.64 M/mm3 (3.80-5.20)
--- NOTE | 2019-07-01 18:04 | NUR ---
SHIFT SUMMARY: PT RESPRATORY RATE AND STATUS HAS IMPROVED T/O THE DAY. PT ANXIETY APPEARS TO BE SLIGHTLY RELATED TO HER INCREASED RESPERATIONS. PT HAS RECEIVED A TOTAL OF 1MG OF ATIVAN TODAY 0.5 PO AND 0.5 IV, WHICH APPEARED TO HELP SLOW HER WORK OF BREATHING DOWN. PT HAS NOT BEEN PRODUCING SPUTUM IN ORDER TO GAUTHER A SAMPLE. LUNG SOUND REMAIN TIGHT AND WEEZY. PT HAS ONLY APPERED TO HAVE APPROX 500ML OF URINE OUT TODAY ALTHOUGH RECEIVING LASIX TODAY. DOCTORS ARE AWARE. WILL CONTINUE TO MONITOR AND REPORT TO ONCOMING RN.
--- NOTE | 2019-07-01 19:41 | NUR ---
BEGIN SHIFT RECEIVED REPORT FROM KYLAH BLANCO. PT APPEARS DYSPNEIC, HOWEVER PT. STATES SHE IS ACTUALLY BREATHING BETTER THAN NORMAL. 92% ON 40L, 74% O2 ON AIRFLO. RESPIRATORY INCREASED FIO2 PRIOR TO GIVING INHALER. PT. BREATHING EFFORT MORE RELAXED AFTER INHALER, RATE SLOWER AT 22-25. SPUTUM SAMPLE COLLECTED 2 MINTUES AGO, SENT TO LAB. NO C/O PAIN. VSS. WILL CONTINUE TO MONITOR.
--- NOTE | 2019-07-01 21:08 | NUR ---
PROGRESS NOTE 21:00 PT FAMILY EXPRESSED CONCERN FOR VALLEY FEVER, PT. WAS TREATED "8-10 YEARS AGO." PER BEDSIDE REPORT, CONCERN WAS RAISED OF POTENTIAL FUNGAL INFECTION. I CONTACTED LAB REGARDING SPUTUM SAMPLE SENT EARLIER THIS EVENING, AND THE LAB DID NOT TEST SPECIFICALLY FOR FUNGUS. OBTAINED AND PLACED ORDER PER DR. LUCAS FOR FUNGAL PANEL OF SPUTUM. WILL CONTINUE TO MONITOR.
[2019-07-02 03:25] LABS: BASOPHILS ABSOLUTE AUTO 0.01 K/mm3 (0.00-0.23); BASOPHILS PERCENT AUTO 0 % (0-2); EOSINOPHILS ABSOLUTE AUTO 0.01 K/mm3 (0.00-0.68); EOSINOPHILS PERCENT AUTO 0 % (0-6); Hematocrit 25.5 % (33.0-51.0); Hemoglobin 7.7 g/dL (11.5-16.0); IMMATURE GRAN ABSOLUTE AUTO 0.27 K/mm3 (0.00-0.10); IMMATURE GRAN PERCENT AUTO 2 % (0-1); LYMPHOCYTES ABSOLUTE AUTO 0.19 K/mm3 (0.84-5.20); LYMPHOCYTES PERCENT AUTO 1 % (21-46); MONOCYTES ABSOLUTE AUTO 0.65 K/mm3 (0.16-1.47); MONOCYTES PERCENT AUTO 4 % (4-13); Mean Corpuscular HGB 30.8 pg (26.0-34.0); Mean Corpuscular HGB Conc 30.2 g/dL (31.5-36.5); Mean Corpuscular Volume 102 fL (80-100); Mean Platelet Volume 10.1 fL (9.1-12.4); NEUTROPHILS PERCENT AUTO 93 % (41-73); NRBC ABSOLUTE 0.04 K/mm3 (0.00-0.02); NRBC Auto 0.2 /100 WBC (0.0-0.2); Platelet Count 270 K/mm3 (150-400); RDW Coefficient Variation 24.1 % (11.7-14.2); RDW Standard Deviation 87.7 fL (35.1-46.3); White Blood Cell Count 16.13 K/mm3 (4.00-11.30)
[2019-07-02 03:51] LABS: Alanine Aminotransfer (ALT/SGP 81 U/L (12-78); Albumin, Blood 2.6 g/dL (3.4-5.0); Albumin/Globulin Ratio 0.7 (0.8-1.8); Alk Phos 77 U/L (50-136); Anion Gap 10 mmol/L (6-16); Aspartate Aminotrans (AST/SGOT 63 U/L (12-37); Bilirubin, Total 0.2 mg/dL (0.1-1.0); Blood Urea Nitrogen 72 mg/dL (8-24); CO2, Blood 26 mmol/L (21-32); Calcium, Blood 8.6 mg/dL (8.5-10.1); Chloride, Blood 102 mmol/L (98-108); Creatinine, Blood 2.06 mg/dL (0.40-1.00); Globulin, Blood 3.7 g/dL (2.2-4.0); Glomerular Filtration Rate 24 (60-); Glucose, Blood 173 mg/dL (70-99); Potassium, Blood 4.4 mmol/L (3.5-5.5); Sodium, Blood 138 mmol/L (136-145); Total Protein, Blood 6.3 g/dL (6.4-8.2)
[2019-07-02 04:00] LABS: Digoxin (Lanoxin) 1.08 ug/mL (0.80-2.00)
--- NOTE | 2019-07-02 06:24 | NUR ---
SHIFT SUMMARY @ 03:00 NOTED PATIENT TO BE MORE DYSPNEIC, CRACKLES AUDIBLE. APPLIED BIPAP, IMPROVED SATURATION, HOWEVER UNCOMFORTABLE WITH MASK. ENCOURAGED CONTINUED USE OF BIPAP, PT. ACCEPTED. @ 03:40, CALLED DR. HUDDLESTON, RECEIVED ORDER FOR 40MG IV LASIX. GAVE, PT. STATES THEY ARE FEELING MUCH BETTER. RETRIEVED SPUTUM, FUNGAL (RESPIRATORY) PANELS. VSS. WILL CONTINUE TOMONITOR.
--- NOTE | 2019-07-02 07:30 | NUR ---
Initial summary Recieved report from Brodie MONTERO. Patient laying in bed with HOB at 30 degrees [address]. BIPAP setting 12/10 and RT just dropped to 12/8 and FiO2 70% and sats low 90% and working to breath. She has NS TKO going in PowerGlide TI dressing intact and site WNL's. She also has 20ga IV in RFA dressing intact and site WNL's flushed and SL"d. She has 14Fr sommers draining to gravity yellow urine. She is able to communicate her needs.
--- NOTE | 2019-07-02 09:30 | NUR ---
Patient working hard to breath and has been placed on AirVo 40-75 and sats 85-90%. Dr Chauhan in room and discusseed intubation with patient. She agreed and was intubated at 0926. She has 8.0 ET and is 25cm at lips, settings areAC 16, TV 350, FiO2 80's, PEEP 8 and sats 98%. She was placed into bilateral soft wrist restarinst and Propofol was started and is currently infusing at 55 mcg/kgh/min and reacts to painful stimuli.
--- NOTE | 2019-07-02 11:30 | NUR ---
Patient stacking breaths. Still getting aguila blood from OG and ET in small amounts. She is in A-Fib 111-130's and Dr Chauhan been advised no new orders. Sats on vent upper 90%'s.
--- NOTE | 2019-07-02 14:30 | NUR ---
No changes with patient, gtt's, or vent settings. Patients sats 95% and looks more comfortable in bed. Family came by briefly to see patient. Propofol remains at 55 mcg/kg/min. Dr Wilson ordered Fentanyl gtt for increased HR and BP and am hold off aliitle to start as her BP and HR have decreased.
--- NOTE | 2019-07-02 18:00 | NUR ---
Summary Patient has been intubated since 925, vent currently AC 16, TV 350, FiO2 40% and PEEP 8 with sats low 90%'s. She is more relaxed being vented. She has 14 Fr Guerra with 600 clear yellow urine out. She has LR TKO and NS TKO with intermitent Abx. PowerGlide TI in good working order.
--- NOTE | 2019-07-02 19:17 | NUR ---
ASSUMED CARE RECEIVED REPORT FROM KYLAH OCASIO. PT IS INTUBATED WITH 8.0 ETTM 25 AT THE LIP; VENT AT AC16/350/8/40%. CURRENT GTTPS: PROPOFOL 55MCG/KG/MIN, AND LR & NS TKO. SHE HAS A PATENT BANUELOS HANGING TO GRAVITY. BILATERAL SWB RESTRAINTS SECURED TO BED. AN OG TUBE CONNECTED TO LIS. PT IS IN AFIB, RATE IN THE 90-110. BP AND O2 SATS STABLE. BED IS LOW AND LOCKED. CALL LIGHT WITHIN REACH.
--- NOTE | 2019-07-03 03:31 | NUR ---
UPDATE NO ACUTE CHANGES. PT IS SLIGHTLY DIAPHORETIC AND SHE REMAINS TACHYPNEIC, RR IN UPPER 20'S. SAT'S HAVE BEEN MID 90'S WITH FIO2 AT 35%. PT REMAINS IN AFIB, RATE IN THE 95-115. BED LOW AND DEANDRE. CPOT OF 0-1 CURRENTLY (STACKING EACH BREATH ONCE, BUT IS ASYMPTOMATIC). FIELD OBSERVER OF FENTANYL SEEM TO HAVE REALLY BEEN EFFECTIVE. START OF SHIFT PT WAS ANXIOUS IN BED, ATIVAN WAS GIVEN AND THEN FIELD OBSERVER FENTANYL WAS STARTED. THIS HAS BEEN RESOLVED.
[2019-07-03 03:34] LABS: BASOPHILS PERCENT AUTO 0 % (0-2); EOSINOPHILS PERCENT AUTO 0 % (0-6); Hematocrit 23.3 % (33.0-51.0); Hemoglobin 7.2 g/dL (11.5-16.0); IMMATURE GRAN ABSOLUTE AUTO 0.32 K/mm3 (0.00-0.10); IMMATURE GRAN PERCENT AUTO 3 % (0-1); LYMPHOCYTES ABSOLUTE AUTO 0.24 K/mm3 (0.84-5.20); LYMPHOCYTES PERCENT AUTO 2 % (21-46); MONOCYTES ABSOLUTE AUTO 0.49 K/mm3 (0.16-1.47); MONOCYTES PERCENT AUTO 4 % (4-13); Mean Corpuscular HGB 31.2 pg (26.0-34.0); Mean Corpuscular HGB Conc 30.9 g/dL (31.5-36.5); Mean Corpuscular Volume 101 fL (80-100); Mean Platelet Volume 10.1 fL (9.1-12.4); NEUTROPHILS ABSOLUTE AUTO 11.01 K/mm3 (1.96-9.15); NEUTROPHILS PERCENT AUTO 91 % (41-73); NRBC ABSOLUTE 0.06 K/mm3 (0.00-0.02); NRBC Auto 0.5 /100 WBC (0.0-0.2); Platelet Count 255 K/mm3 (150-400); RDW Coefficient Variation 24.1 % (11.7-14.2); RDW Standard Deviation 85.8 fL (35.1-46.3); Red Blood Cell Count 2.31 M/mm3 (3.80-5.20); White Blood Cell Count 12.06 K/mm3 (4.00-11.30)
[2019-07-03 03:56] LABS: Albumin, Blood 2.5 g/dL (3.4-5.0); Albumin/Globulin Ratio 0.7 (0.8-1.8); Bilirubin, Total 0.3 mg/dL (0.1-1.0); Bun/Creatinine Ratio 34.4 (12.0-20.0); Calcium, Blood 8.3 mg/dL (8.5-10.1); Creatinine, Blood 2.5 mg/dL (0.40-1.00); Globulin, Blood 3.6 g/dL (2.2-4.0); Potassium, Blood 3.9 mmol/L (3.5-5.5); Total Protein, Blood 6.1 g/dL (6.4-8.2)
--- NOTE | 2019-07-03 07:47 | NUR ---
SHIFT SUMMARY PT REMAINS INTUBATED ON VENT AC16/350/8/35%. CURRENT GTTPS: PROPOFOL 55MCG/KG/MIN, PRECEDEX 1.0MCG/KG/HR, FENTANYL MARBLE POLISHER 12.5MCG/HR AT A CONTINOUS RATE ONLY, AND NS&LR TKO. CPOT OF 0-1. MOVES EXTREMETIES OCCASIONALLY. SHE IS IN AFIB, RATE 95-115. STABLE BP. O2 SATS HAVE BEEN MID 90'S, HAD TO BE INCREASED FROM 30-35% EARLY IN SHIFT. COARSE IN UPPER AND MID LOBES, DIMINISHED IN LOWER LOBES. MALDONADO-BLOODY TINGED SPUTUM, MODERATE AMOUNT OUT OF ETT. SMALL AMOUNT OF MALDONADO SPUTUM FROM ORAL CAVITY. NO BM OVER NIGHT. 600ML OF LIGHT YELLOW, CLEAR URINE. BANUELOS IS HANGING TO GRAVITY. SKIN IS OVERALL CDI, HOWEVER SHE WAS SLIGHTLY DIAPHORETIC. POWERGLIDE AND PERIOPHERAL IV ARE WNL. THE LEFT FOREARM LOOKS IT HAS INFILITRATED, BUT FLUSHES AND DRAWS BLOOD FINE. PT HAS BEEN ADEQUATLY SEDATED SINCE ATIVAN WAS GIVEN AT START OF SHIFT WELL STARTING THE FENTANYL MARBLE POLISHER PUMP. BED IS LOW AND LOCKED. PT WAS GIVEN A BATH LAST NIGHT. NO FAMILY OVERNIGHT.
--- NOTE | 2019-07-03 08:32 | NUR ---
ASSUMED CARE: REPORT RECEIVED FROM JAMES Arias RN. ASSUMED CARE OF THIS PT AT APPROX 0700. ON ASSESSMENT, THE PT REMAINS SEDATED & INTUBATED. SHE IS RESTING COMFORTABLY. VENT SETTINGS: AC 16, TV 350, PEEP 8 & FIO2 35%. PROPOFOL TITRATION FOR SEDATION, FENTANYL DRIP PER EMAR. LS ARE COARSE T/O, O2 SATS > 92% ON AVG. MONITOR SHOWS AFIB W/ BBB, HR 90-120s. BP STABLE. OGT TO LIS, BANUELOS PATENT/ DRAINING. SKIN OVERALL CDI. WILL CONTINUE TO MONITOR & UPDATE NEEDED.
--- NOTE | 2019-07-03 10:16 | NUR ---
OGT: OGT CLAMPED NOW FOLLOWING PT DOCTOR OF NURSE ANESTHESIA PRACTICE
--- NOTE | 2019-07-03 10:45 | NUR ---
DR HUDDLESTON (MARKUS): PROVIDER AT BEDSIDE TO SEE PT. FAMILY HAS BEEN UPDATED ON PT's CONDITION. SOME MEDS HAVE BEEN CHANGED THIS AM TO BE SUITABLE TO CRUSHING & ADMIN THROUGH OGT. CXR COMPLETED & DIETARY CONSULT PLACED. WILL CONTINUE TO MONITOR & UPDATE NEEDED.
--- NOTE | 2019-07-03 11:34 | NUR ---
DR ZAVALA: PROVIDER HAS BEEN AT BEDSIDE THIS AM. NO CHANGES, CONTINUE MANAGEMENT PER SALES AGENT FINANCIAL REPORT SERVICE SERVICE.
--- NOTE | 2019-07-03 11:53 | NUR ---
Pal Care visit: Review of EMR and case conferenced with RN in [facility]. Pt remains sedated and ventilated. RN has lightenend sedation and pt's vent set to spontaneous respirations. Pt appears to be resting well, no distress, pain or agitation noted in nonverbal indicators. No family present currently. RN states CXR improving with fewer infiltrates/inflammation. Anticipate another couple days on vent per RN. We will follow and remain available for s/s management and advanced care planning as desired by pt when she is off the vent.
--- NOTE | 2019-07-03 15:19 | NUR ---
TUBE FEEDS: TUBE FEEDING OF VITAL HP HAS BEEN INITIATED AT RATE OF 25 ML/HR W/ 30 ML H2O FLUSH Q4, PER DIETARY MANAGEMENT. MAY BE ADVANCED AT APPROX 0000 TONIGHT.
[2019-07-03 16:10] LABS: Hematocrit 23.1 % (33.0-51.0)
--- NOTE | 2019-07-03 18:44 | NUR ---
SHIFT SUMMARY / DR HUDDLESTON (MARKUS): NO ACUTE CHANGES THIS AFTERNOON. PT REMAINS SEDATED/ INTUBATED W/ VENT SETTINGS ON SPONTANEOUS, PS 5, FIO2 35%. SHE IS TOLERATING THIS WELL W/ RR 12-18 & O2 SATS > 90% ON AVG. PROPOFOL FOR SEDATION, FENTANYL DRIP FOR SEDATION ADJUNT. BILAT SOFT WRIST RESTRAINTS IN PLACE. LS REMAIN COARSE T/O. MONITOR SHOWS AFIB W/ BBB, HR 90-110s. BP STABLE. PT HAS HAD NO BM TODAY. VITAL HP TF INFUSING AT RATE OF 25 ML/HR, RESIDUALS CHARTED. BANUELOS PATENT/ DRAINING CLEAR YELLOW URINE. SKIN OVERALL CDI. CALL TO PROVIDER TO NOTIFY HIM OF PT's REPEAT H&H RESULTS. HE STS HE WOULD NOT LIKE TO TRANSFUSE AT THIS TIME THERE IS NO OUTWARD SIGNS OF BLEEDING FROM THE PT AT THIS TIME. WILL CONTINUE TO MONITOR & REPORT OFF TO ONCOMING RN.
[2019-07-04 03:30] LABS: BASOPHILS ABSOLUTE AUTO 0.03 K/mm3 (0.00-0.23); BASOPHILS PERCENT AUTO 0 % (0-2); EOSINOPHILS PERCENT AUTO 0 % (0-6); Hematocrit 22.5 % (33.0-51.0); Hemoglobin 6.8 g/dL (11.5-16.0); IMMATURE GRAN ABSOLUTE AUTO 0.74 K/mm3 (0.00-0.10); IMMATURE GRAN PERCENT AUTO 4 % (0-1); LYMPHOCYTES ABSOLUTE AUTO 0.33 K/mm3 (0.84-5.20); LYMPHOCYTES PERCENT AUTO 2 % (21-46); MONOCYTES ABSOLUTE AUTO 0.73 K/mm3 (0.16-1.47); MONOCYTES PERCENT AUTO 4 % (4-13); Mean Corpuscular HGB 30.6 pg (26.0-34.0); Mean Corpuscular HGB Conc 30.2 g/dL (31.5-36.5); Mean Corpuscular Volume 101 fL (80-100); Mean Platelet Volume 10.4 fL (9.1-12.4); NEUTROPHILS ABSOLUTE AUTO 16.39 K/mm3 (1.96-9.15); NEUTROPHILS PERCENT AUTO 90 % (41-73); NRBC ABSOLUTE 0.19 K/mm3 (0.00-0.02); Platelet Count 296 K/mm3 (150-400); RDW Coefficient Variation 23.6 % (11.7-14.2); RDW Standard Deviation 83.2 fL (35.1-46.3); Red Blood Cell Count 2.22 M/mm3 (3.80-5.20); White Blood Cell Count 18.22 K/mm3 (4.00-11.30)
[2019-07-04 03:46] LABS: BAND PERCENT MAN 1 % (0-8); BASOPHILS PERCENT MAN 0 % (0-2); EOSINOPHILS PERCENT MAN 0 % (0-6); LYMPHOCYTES ABSOLUTE MAN 0.54 K/mm3 (0.84-5.20); LYMPHOCYTES PERCENT MAN 3 % (21-46); METAMYELOCYTE ABSOLUTE MAN 0.18 K/mm3 (0.00-0.00); METAMYELOCYTE PERCENT MAN 1 % (0-0); MONOCYTES ABSOLUTE MAN 0.18 K/mm3 (0.16-1.47); MONOCYTES PERCENT MAN 1 % (4-13); SEG NEUTROPHILS PERCENT MAN 94 % (41-73); TOTAL CELLS COUNTED 100
[2019-07-04 03:47] LABS: Bun/Creatinine Ratio 40.4 (12.0-20.0); Calcium, Blood 8.3 mg/dL (8.5-10.1); Creatinine, Blood 2.7 mg/dL (0.40-1.00); Magnesium, Blood 2.8 mg/dL (1.6-2.4); Phosphorus, Blood 6.8 mg/dL (2.5-4.9); Potassium, Blood 4.3 mmol/L (3.5-5.5)
--- NOTE | 2019-07-04 07:16 | NUR ---
SHIFT SUMMARY PT REMAINS ON VENT, SPONTANEOUS MODE 01/19, 40%. SHE IS IN AFIB, WITH A BBB, RATE IS CONTROLLED 95-115, BP STABLE. CURRENT GTTP: PROPOFOL 50MCG/KG/MIN, FENTANYL MARKET INTELLIGENCE CONSULTANT @ 12.5MCG/HR CONTINOUS RATE, AND LR&NS TKO. 1 UNIT PRBC CURRENTLY INFUSING. VITAL HIGH TUBE FEEDING INFUSING THROUGH OG TUBE AT GOAL RATE 45ML/HR. RESIDUALS HAVE BEEN MINIMAL ALL SHIFT <20ML. PT HAS BEEN ADEQUETLY SEDATED ALL NIGHT. BED IS LOW AND LOCKED. SWB RESTRAINTS SECURED INTO PLACE. PATENT BANUELOS THAT IS DRAINING TO GRAVITY, HAD 650ML URINE OUTPUT. NO BM OVERNIGHT. HYPOACTIVE BT'S.
--- NOTE | 2019-07-04 07:20 | NUR ---
ASSUMED CARE AT 0700. REPORT FROM EBEN MONTERO. PT INTUBATED AND SEDATED. VENT SETTINGS SPONT, PS 5/40%/PEEP 8. PT c HIGH TITAL VOLUMES>1000. LUNGS CLEAR. PROPOFOL INFUSING AT 50 MCG/KG/HR AND FENTANTLY AT 12.5 MCG/HR CONTINUOUS. PT P/W/D. TUBE FEEDINGS THROUGHOU OGT, RESIDUALS 100 ML. AT GOAL OF 45 ML/HR. ABD DISTENDED. BANUELOS PATENT, DRAINING TO GRAVITY. PRBC INFUSING. CALL LIGHT IN REACH. WILL CONTINUE TO MONITOR.
--- NOTE | 2019-07-04 11:16 | NUR ---
DR FLORES AT BEDSIDE. PEEP DECREASED FROM 8 TO 5. PT STARTS TAKING HALF BREATHS, PEEP INCREASED TO 8. TITAL VOLUMES >1L. HR 120-130'S. WILL MONITOR HR AND COMPLETE SEDATION VACATION TODAY. UPDATED ON CARE.
--- NOTE | 2019-07-04 14:43 | NUR ---
Clinical Visit: Pt sedated and on vent. is bedside and is calm appearing. He states that he doesn't have questions at this time. He is grateful to staff for being attentive and keeping Sravanthi comfortable. She opened her eyes yesterday. He states that communication with providers has been adequate. No concerns identified at this time. Will await pt's extubation and follow up with advance care planning and discussion.
--- NOTE | 2019-07-04 18:19 | NUR ---
SHIFT SUMMARY. PT REMAINS INTUBATED AND SEDATED. VENT SETTINGS, SPONT PS 5/PEEP 8/40%. PROPOFOL DECREASED THIS SHIFT TO INCREASE RESP RATE. PROPOFOL INFUSING AT 25 MCG/KG/MIN. RR 9-12. FENTANYL CONTINOUS INFUSION AT 12.5 MCG/HR. WILL CONTINUE TO MONITOR RR. HR INCREASED DURING THIS SHIFT. CARDIZEM PO INCREASED TO 90 MG TID. AFIB, RATE 100-120'S. SEDATION VACATION THIS SHIFT, DECREASED PROPOFOL, PT OPENS EYES ON COMMAND, DOES NOT FOLLOW OTHER COMMANDS, HR INCREASED TO 130'S. SEDATION RESUMED. TUBE FEEDING CONTINUE TO 45 ML/HR. BANUELOS PATENT AND DRAINING TO GRAVITY. 700ML OUT TODAY. UPDATED THIS SHIFT. REPORT TO ONCOMING NURSE.
--- NOTE | 2019-07-04 21:15 | NUR ---
PATIENT INTUBATED AND SEDATED. BILATERAL SOFT WRIST RESTRAINTS. TOLERATING VENT WELL. ON 25 MCG/KG/MIN OF PROPOFOL. 12.5MCG/HOUR OF FENTANYL. PATIENT'S RESPIRATIONS BETWEEN 9-12/MIN PULLS LARGE VOLUMES OF AIR. HEART RATE/RHYTHM SHOWS AFIB, HAS BEEN BETWEEN 100-120 HR. VENT SETTINGS ARE PS 5, PEEP 8, FIO2 40%. RESPONDS TO NOXIOUS STIMULI. IV SITES ARE PATENT AND INTACT, DRESSING ARE CLEAN AND DRY. BOWEL SOUNDS ARE HYPOACTIVE ALL FOUR QUADS. CONTINUING TO TF AT GOAL RATE OF 45ML/HR, RESIDUALS 40ML. LUCILA FOFANA SN
[2019-07-05 04:23] LABS: BASOPHILS ABSOLUTE AUTO 0.07 K/mm3 (0.00-0.23); BASOPHILS PERCENT AUTO 0 % (0-2); EOSINOPHILS PERCENT AUTO 0 % (0-6); Hematocrit 24.5 % (33.0-51.0); Hemoglobin 7.7 g/dL (11.5-16.0); IMMATURE GRAN ABSOLUTE AUTO 1.38 K/mm3 (0.00-0.10); IMMATURE GRAN PERCENT AUTO 5 % (0-1); LYMPHOCYTES ABSOLUTE AUTO 0.66 K/mm3 (0.84-5.20); LYMPHOCYTES PERCENT AUTO 3 % (21-46); MONOCYTES ABSOLUTE AUTO 1.01 K/mm3 (0.16-1.47); MONOCYTES PERCENT AUTO 4 % (4-13); Mean Corpuscular HGB 31.3 pg (26.0-34.0); Mean Corpuscular HGB Conc 31.4 g/dL (31.5-36.5); Mean Corpuscular Volume 100 fL (80-100); Mean Platelet Volume 10.4 fL (9.1-12.4); NEUTROPHILS ABSOLUTE AUTO 23.14 K/mm3 (1.96-9.15); NEUTROPHILS PERCENT AUTO 88 % (41-73); NRBC ABSOLUTE 1.65 K/mm3 (0.00-0.02); NRBC Auto 6.3 /100 WBC (0.0-0.2); Platelet Count 325 K/mm3 (150-400); RDW Coefficient Variation 21.6 % (11.7-14.2); Red Blood Cell Count 2.46 M/mm3 (3.80-5.20); White Blood Cell Count 26.26 K/mm3 (4.00-11.30)
[2019-07-05 04:25] LABS: PCO2 Arterial 38.8 mmHg (35-45); PO2 Arterial 66.7 mmHg (80-100); pH Blood Arterial 7.35 (7.35-7.45)
[2019-07-05 04:44] LABS: BAND PERCENT MAN 1 % (0-8); BASOPHILS PERCENT MAN 0 % (0-2); EOSINOPHILS PERCENT MAN 0 % (0-6); LYMPHOCYTES ABSOLUTE MAN 0.52 K/mm3 (0.84-5.20); LYMPHOCYTES PERCENT MAN 2 % (21-46); METAMYELOCYTE ABSOLUTE MAN 0.26 K/mm3 (0.00-0.00); METAMYELOCYTE PERCENT MAN 1 % (0-0); MONOCYTES ABSOLUTE MAN 0.78 K/mm3 (0.16-1.47); MONOCYTES PERCENT MAN 3 % (4-13); NEUTROPHILS ABSOLUTE MAN 24.68 K/mm3 (1.96-9.15); SEG NEUTROPHILS PERCENT MAN 93 % (41-73); TOTAL CELLS COUNTED 100
[2019-07-05 04:46] LABS: Alanine Aminotransfer (ALT/SGP 65 U/L (12-78); Albumin, Blood 2.4 g/dL (3.4-5.0); Albumin/Globulin Ratio 0.8 (0.8-1.8); Alk Phos 80 U/L (50-136); Anion Gap 12 mmol/L (6-16); Aspartate Aminotrans (AST/SGOT 55 U/L (12-37); Bilirubin, Total 0.3 mg/dL (0.1-1.0); Blood Urea Nitrogen 137 mg/dL (8-24); Bun/Creatinine Ratio 50.7 (12.0-20.0); CO2, Blood 21 mmol/L (21-32); Calcium, Blood 7.8 mg/dL (8.5-10.1); Chloride, Blood 101 mmol/L (98-108); Globulin, Blood 3.1 g/dL (2.2-4.0); Glomerular Filtration Rate 18 (60-); Glucose, Blood 214 mg/dL (70-99); Phosphorus, Blood 6.6 mg/dL (2.5-4.9); Potassium, Blood 4.8 mmol/L (3.5-5.5); Sodium, Blood 134 mmol/L (136-145); Total Protein, Blood 5.5 g/dL (6.4-8.2)
[2019-07-05 04:58] LABS: Digoxin (Lanoxin) 1.32 ug/mL (0.80-2.00)
--- NOTE | 2019-07-05 06:18 | NUR ---
SHIFT SUMMARY PATIENT IS INTUBATED AND SEDATED. BILATERAL SOFT RESTRAINTS. TOLERATES VENT WELL. CALM AND RELAXED. VENT SETTINGS ARE PS 5, PEEP 8, FI02 40-45% THROUGHOUT SHIFT . PROPOFOL AT 25MCG/KG/MIN. FENTANYL 12.5MCG PER HOUR. HEART RATE AT START OF SHIFT WAS AROUND 110-120, OCCASIONALLY 120-140. HR DECREASED TO LOW 90S TO 100S AFTER PT CARDIZEM. RR INCREASED TO 10-15 THROUGHOUT SHIFT. SEDATION VACATION THIS MORNING FOR APPROXIMATELY 30-45MIN. MINUTE VENTILATION INCREASED TO 18-19 LITERS PER MINUTE. RR INCREASED TO 18-22. O2 DECREASED TO 88-90%. SEDATION THEN RESUMED. PATIENT ATTEMPTED TO OPEN EYES DURING SEDATION VACATION, BUT FOLLOWED NO OTHER COMMANDS. IV REMAINS PATENT AND INTACT. BANUELOS IS PATENT AND INTACT. LUCILA FOFANA SN
--- NOTE | 2019-07-05 11:04 | NUR ---
ASUMPTION OF CARE ASSUMED CARE OF PT AT 0700. PT INTUBATED AND SEDATED, VENT PS 5/8 FiO2 45%, PT ON PROPOFOL AT 25 AND FENTANYL AT 12.5mcg/hr. PT NOT RESPONSIVE TO PAINFUL, BUT IS BREATHING OVER THE VENT AND TOLERATING PS WELL. PROPOFOL TURNED DOWN TO 20. PT REMAINS IN AFIB ON THE MONITOR WITH RATE 90'S-130'S. DR FLORES TO ROOM, UPDATED SPOUSE ON PTS CONDITION, REQUESTED NEPHROLOGY CONSLUT. DR MOREIRA'S OFFICE NOTIFIED OF NEW CONSULT AND PT PLACED ON DR'S LIST.
--- NOTE | 2019-07-05 14:18 | NUR ---
RECTAL TEMP PROBE PLACED.
--- NOTE | 2019-07-05 14:32 | NUR ---
[facility] care clinical visit: Case conferenced and update received from Dr Fang and EMR prior to my visit. Pt remains on vent, sedated and unresponsive to voice or touch. She looks comfortable and without nonverbal indicators of distress. Her , Al is sitting at the bedside. I introduced myself to him and explained the purpose of palliative care visits. We reviewed the information he received from Dr Fang this am and he seems to have a very good understanding of the conversation. He reports knowledge of his 's heart and kidney issues being equally pressing and possibly preventing significant improvement in her respiratory status. Al verbalizes that his would not want to live on ventilatory support chcf if she cannot be weaned from it and that he was disappointed that she was not able to be weaned this am. I spent time talking with and provided support and distraction. Offered him beverages or snack. He declined and said he had just eaten lunch. Encouraged self care and hydration while spending much of his day at his 's side. He was given our card and contact info to call if he had any quesions or desire to problem solve advanced care planning. He verbalized appreciation for our visit and was receptive to daily visits. I let him know palliative care had been visiting his daily since last Thursday and he was grateful for that.
[2019-07-05 14:47] LABS: Source, Urine Catheter
[2019-07-05 15:00] LABS: Bilirubin, Urine Neg (Neg); Blood, Urine 1+ (Neg); Glucose Qualitative, Urine Neg (Neg); Ketones, Urine Neg (Neg); Leukocyte Esterase, Urine Neg (Neg); Nitrite, Urine Neg (Neg); Protein, Urine 2+ (Neg); Specific Gravity, Urine 1.015 (1.003-1.022); Urobilinogen, Urine NORM (Normal)
[2019-07-05 15:25] LABS: Appearance, Urine Clear (Clear); Color, Urine Yellow (P-Yellow)
[2019-07-05 15:26] LABS: Bacteria Few /hpf; Red Blood Cells, Urine 0-2 /hpf (0-2); Squamous Epithelial Cells Few /hpf (Few); White Blood Cells, Urine 0-2 /hpf (0-5); Yeast/Fungi Urine Few /hpf
--- NOTE | 2019-07-05 16:24 | NUR ---
PTS TEMPERATURE 102.6, PRN TYLENOL ADMINISTERED, FAN PLACED ON PT, BLANKETS REMOVED, ICE PACKS APPLIED TO BILAT AXILLARY AND BACKSIDE OF NECK. PT CASPER CULTURED.
--- NOTE | 2019-07-05 18:20 | NUR ---
Spirtual Care routine visit: Met with Al and their son at bedside. Both men are subdued and withdrawn. Neither engaged well. They are clearly worried, but declined prayer. I will remain available.
[2019-07-05 18:40] LABS: International Normalized Ratio 1.11; Prothrombin Time Results 11.7 Sec (9.7-11.5)
--- NOTE | 2019-07-05 19:35 | NUR ---
PICC ON HOLD PICC PLACED ON HOLD PER DR FLORES D/T SPIKE IN TEMP OF 102.7. URINE,SPUTUM, AND BLOOD SENT FOR CX.
--- NOTE | 2019-07-05 19:47 | NUR ---
SHIFT SUMMARY PT REMAINS INTUBATED AND SEDATED, VENT SET TO PS 5/8 Fi02 45%, 02 SATURATIONS MAINTAINED ABOVE 90%. HR REMAINS IN AFIB WITH BBB, RATE 90'S-130'S, PT HYPERTENSIVE FOR MAJORITY OF SHIFT, CARDIZEM ADMINISTERED ORDERD. TMAX 102.7 (SEE NURSE NOTE). URINE OUTPUT REMAINS ADEQUATE WITH 1,000ml THIS SHIFT. NEPHROLOGY CONSULTED THIS SHIFT, SEE ORDERS FROM DR MOREIRA, FIRST DOSE OF BUMEX AND ALBUMIN ADMINISTERED THIS EVENING.
--- NOTE | 2019-07-05 20:00 | NUR ---
ASSUMED CARE NOTE: ASSUMED CARE OF PT AT 1900, RECEVIED REPORT FROM ALMA MONTERO. UPON ENTERING ROOM PT WAS IN THE RIGHT SIDE LYING POSITION, BILAT SWR IN PLACE. PT TEMP @ 101.6, ICE PACKS PLACED (BILAT AXILLARY), MEDICATED PER EMAR. PT IS ABLE TO RESPOND TO PAINFUL STIMULI. PT IS ON THE VENT WITH SETTINGS SET TO PS 5, PEEP 8, FiO2 40 %, LUNG SOUNDS ARE COARSED T/0. NG TUBE IN PLACE AND TUBE FEEDING RUNNING AT GOAL OF 45ML/HR, WITH RESIDUAL AT 90CC. BANUELOS PATENT AND DRAINING CLEAR YELLOW URINE. HEPARIN RUNNING @ 13U/KG/HR, PROPOFOL @ 25MCG/KG/HR. BED AT LOWEST POSITION. WILL CONTINUE TO [facility] PT T/O SHIFT.
--- NOTE | 2019-07-06 03:25 | NUR ---
RHYTHM CHANGE MONITOR SHOWS ASYSTOLE FOR APPROXIMATELY 30 SECONDS AND THEN IDIOVENTRICULAR RHYTHM, RATE 20s. FEMORAL PULSE PALPABLE AT THIS TIME. PT IS A LIMITED CODE. CHANGED TO AC VENTILATION AT THIS TIME. PT IS UNRESPONSIVE. PROPOFOL AND FENTANYL ON STANDBY. HEPARIN INFUSING PER ORDER.
--- NOTE | 2019-07-06 03:30 | NUR ---
RHYTHM CHANGE/CALL TO MD DR. FLORES NOTIFIED OF CHANGE IN CONDITION. DISCUSSION REGARDING CURRENT CODE STATUS COMPLETE. ORDER TO START DOPAMINE GIVEN IF FAMILY OKAYS FURTHER TREATMENT. CALL TO WAS UNANSWERED. SON, GLENNY, NOTIFIED OF CHANGE IN CONDITION. GLENNY WISHES TO TALK WITH FAMILY REGARDING TREATMENT, BUT AGREED TO START DOPAMINE AT THIS TIME.
--- NOTE | 2019-07-06 03:50 | NUR ---
CALL TO MD DR. FLORES NOTIFIED OF CONTINUED IDIOVENTRICULAR RHYTHM WITH PULSE. MD INFORMED THAT DOPAMINE WAS STARTED AND IS INFUSING @ 20MCG/KG/MIN. DISCUSSION REGARDING FURTHER TREATMENT- WILL DISCUSS WITH FAMILY BEFORE ORDERING FURTHER TREATMENT.
[2019-07-06 03:59] LABS: PCO2 Arterial 62.4 mmHg (35-45); PO2 Arterial 261 mmHg (80-100)
[2019-07-06 04:01] LABS: pH Blood Arterial 6.92 (7.35-7.45)
--- NOTE | 2019-07-06 04:10 | NUR ---
FAMILY DECISION DISCUSSED FURTHER TREATMENT WITH FAMILY AND POTENTIAL OUTCOME WITH AND WITHOUT TREATMENT. DECISION MADE TO CONTINUE CURRENT TREATMENT BUT TO NOT ADD ANY ADDITIONAL TREATMENT AT THIS TIME. SON, GLENNY, REMAINS AT BEDSIDE. HAS BEEN NOTIFIED BY SON.
[2019-07-06 04:20] LABS: BASOPHILS ABSOLUTE AUTO 0.14 K/mm3 (0.00-0.23); BASOPHILS PERCENT AUTO 0 % (0-2); Hemoglobin 6.1 g/dL (11.5-16.0); Mean Corpuscular HGB 32.3 pg (26.0-34.0); Mean Platelet Volume 11.3 fL (9.1-12.4); NRBC ABSOLUTE 4.53 K/mm3 (0.00-0.02); NRBC Auto 10.3 /100 WBC (0.0-0.2); Platelet Count 327 K/mm3 (150-400); RDW Coefficient Variation 23.1 % (11.7-14.2); RDW Standard Deviation 87.5 fL (35.1-46.3); Red Blood Cell Count 1.89 M/mm3 (3.80-5.20); White Blood Cell Count 44.12 K/mm3 (4.00-11.30)
[2019-07-06 04:25] LABS: EOSINOPHILS PERCENT AUTO 0 % (0-6); IMMATURE GRAN ABSOLUTE AUTO 3.36 K/mm3 (0.00-0.10); IMMATURE GRAN PERCENT AUTO 8 % (0-1); LYMPHOCYTES ABSOLUTE AUTO 2.98 K/mm3 (0.84-5.20); LYMPHOCYTES PERCENT AUTO 7 % (21-46); MONOCYTES ABSOLUTE AUTO 1.72 K/mm3 (0.16-1.47); MONOCYTES PERCENT AUTO 4 % (4-13); Mean Corpuscular Volume 111 fL (80-100); NEUTROPHILS ABSOLUTE AUTO 35.92 K/mm3 (1.96-9.15); NEUTROPHILS PERCENT AUTO 81 % (41-73)
--- NOTE | 2019-07-06 04:29 | NUR ---
SON STEPPED OUT OF ROOM TO TALK WITH FAMILY AT APPROXIMATELY 0420. MONITOR NOW SHOWS ASYSTOLE. PT WITHOUT PULSE/HEART SOUNDS. FAMILY IN ROOM JUST PATIENT PASSED. PT EXTUBATED BY RT AT THIS TIME. SEE FINAL DISCHARGE INTERVENTION.
[2019-07-06 04:35] LABS: Anion Gap 20 mmol/L (6-16); Blood Urea Nitrogen 181 mg/dL (8-24); Bun/Creatinine Ratio 57.1 (12.0-20.0); CO2, Blood 15 mmol/L (21-32); Calcium, Blood 7.6 mg/dL (8.5-10.1); Chloride, Blood 102 mmol/L (98-108); Creatinine, Blood 3.17 mg/dL (0.40-1.00); Glomerular Filtration Rate 15 (60-); Glucose, Blood 232 mg/dL (70-99); Sodium, Blood 137 mmol/L (136-145)
[2019-07-06 04:37] LABS: BAND PERCENT MAN 13 % (0-8); BASOPHILS PERCENT MAN 0 % (0-2); EOSINOPHILS PERCENT MAN 0 % (0-6); LYMPHOCYTES ABSOLUTE MAN 5.73 K/mm3 (0.84-5.20); LYMPHOCYTES PERCENT MAN 13 % (21-46); METAMYELOCYTE ABSOLUTE MAN 1.32 K/mm3 (0.00-0.00); METAMYELOCYTE PERCENT MAN 3 % (0-0); MONOCYTES PERCENT MAN 5 % (4-13); NEUTROPHILS ABSOLUTE MAN 34.85 K/mm3 (1.96-9.15); SEG NEUTROPHILS PERCENT MAN 66 % (41-73); TOTAL CELLS COUNTED 100
[2019-07-06 05:01] LABS: CPK Creatine Kinase 94 U/L (26-193); Creatine Kinase MB 2.6 ng/mL (0.0-3.6); Creatine Kinase MB Index 2.8 (0.0-4.0); Magnesium, Blood 3.4 mg/dL (1.6-2.4); Troponin I 0.412 ng/mL (0.000-0.040)
[2019-07-06 05:03] LABS: Phosphorus, Blood 10.2 mg/dL (2.5-4.9)
--- NOTE | 2019-07-06 20:00 | NUR ---
CALLED JOCELINE, THE PT'S SON TO LET HIM KNOW THAT THERE WAS A NOTEBOOK AND A SCALE THAT GOT LEFT BEHIND. ASKED HIM IF HE WANTED TO COME GET THEM, HE SAID "NO, JUST THROW THEM AWAY PLEASE."
== END 2019-07-06 04:29 | DRG 208 ==
LOC: ER 19:14 → MEDS 19:15 → ICUE 06-28 13:57 → MEDS 06-28 13:58 → ICUE 06-29 01:41
PROVIDERS: Internal Medicine; Internal Medicine Critical Care Medicine; Internal Medicine Pulmonary Disease; Physician Assistant; ADMIT Hospitalist
PROC: 30233N1 Transfusion of Nonautologous Red Blood Cells into Peripheral Vein, Percutaneous Approach (ICD-10-PCS; principal; 2019-06-27)
PROC: 5A1945Z Respiratory Ventilation, 24-96 Consecutive Hours (ICD-10-PCS; 2019-07-02)
PROC: 0BH18EZ Insertion of Endotracheal Airway into Trachea, Via Natural or Artificial Opening Endoscopic (ICD-10-PCS; 2019-07-02)
DX: B37.1 Pulmonary candidiasis (principal); J96.21 Acute and chronic respiratory failure with hypoxia; I50.33 Acute on chronic diastolic (congestive) heart failure; N17.0 Acute kidney failure with tubular necrosis; I13.0 Hypertensive heart and chronic kidney disease with heart failure and stage 1 through stage 4 chronic kidney disease, or unspecified chronic kidney disease; I48.20 Chronic atrial fibrillation, unspecified; J44.1 Chronic obstructive pulmonary disease with (acute) exacerbation; J70.0 Acute pulmonary manifestations due to radiation; N25.81 Secondary hyperparathyroidism of renal origin; E87.2 Acidosis; J44.0 Chronic obstructive pulmonary disease with (acute) lower respiratory infection; Z51.5 Encounter for palliative care; Z66 Do not resuscitate; E03.9 Hypothyroidism, unspecified; Z99.81 Dependence on supplemental oxygen; F32.9 Major depressive disorder, single episode, unspecified; Z79.82 Long term (current) use of aspirin; Z85.118 Personal history of other malignant neoplasm of bronchus and lung; Z92.3 Personal history of irradiation; N18.3 Chronic kidney disease, stage 3 (moderate); I46.8 Cardiac arrest due to other underlying condition; E87.5 Hyperkalemia
CPT/HCPCS: 31500; 31720; 36415; 36430; 36600; 51703; 71045; 71046; 71260; 76770; 80048; 80053; 80069; 80162; 81001; 81003; 82330; 82550; 82553; 82803; 83605; 83735; 83880; 84100; 84484; 85014; 85018; 85025; 85027; 85610; 85730; 86850; 86900; 86901; 86923; 87040; 87070; 87205; 88108; 88312; 90686; 93005; 93010; 94002; 94003; 94640; 94660; 94760; 96365; 96375; 99285-25; A9270; A9270-GY; C1751; C9113; G0008; G0378; J0692; J0881; J1265; J1644; J1940; J2060; J2248; J2250; J2543; J2704; J2916; J2920; J3010; J3370; J7050; J7060; J7120; P9016; P9041; Q9967